=== PATIENT | female | born 1960 | race Hispanic/Latino ===

== ENCOUNTER 2017-03-25 21:48 | Emergency (ER) | payer BC, MEDICARE ==
[~2017-03-25 21:48] MED LIST: AEC81 PO; AMOX-429 PO; BIMA12.5OS OU; BRIM15OS OU; COSO10OS OU; DOCU50CA13 PO; EZET10TA26 PO; FAMO-136 PO; FERR325T22 PO; FOLI1TAB82 PO; INSU100I3 SQ; INSU100V12 SQ; ONDA4TAB9 PO; ROSU40TA28 PO; TORS100T16 PO
[2017-03-25] MEDS ORDERED: MORPHINE SULFATE 4 MG/1ML SYG ONE (23:54)
[2017-03-25] MEDS ORDERED: ONDANSETRON HCL 4 MG/2 ML VIAL ONE (23:54)
[2017-03-26] MEDS ORDERED: MORPHINE SULFATE 4 MG/1ML SYG ONE (02:46)
== END 2017-03-26 04:16 | disposition home or self-care (01) ==
LOC: EDH 21:48
DX: S82.852A Displaced trimalleolar fracture of left lower leg, initial encounter for closed fracture (principal); S82.252A Displaced comminuted fracture of shaft of left tibia, initial encounter for closed fracture; S82.452A Displaced comminuted fracture of shaft of left fibula, initial encounter for closed fracture; E11.9 Type 2 diabetes mellitus without complications; E78.5 Hyperlipidemia, unspecified; I10 Essential (primary) hypertension; I25.810 Atherosclerosis of coronary artery bypass graft(s) without angina pectoris; Z95.1 Presence of aortocoronary bypass graft; Z90.710 Acquired absence of both cervix and uterus; X58.XXXA Exposure to other specified factors, initial encounter; Y93.89 Activity, other specified; Y92.89 Other specified places as the place of occurrence of the external cause; Y99.8 Other external cause status
CPT/HCPCS: 27818; 73600; 73610; 96374; 96375; 96376; 99284; J2270 ×2; J2405

== ENCOUNTER 2018-03-12 10:43 | Inpatient (IN) | payer BC, MEDICARE ==
[~2018-03-12] VITALS: Ht 160 cm; Wt 70.8 kg
[~2018-03-12 10:43] MED LIST changes: +ROSU40TA20 PO; -ROSU40TA28 PO
[2018-03-12 12:08] LABS: EOSINOPHILS % (AUTO) 0.9 % (0.0-8.0); HEMATOCRIT 29.5 % (36-48); LYMPHOCYTES % (AUTO) 14.5 % (21.0-51.0); MEAN CORPUSCULAR HEMOGLOBIN 26.4 pg (27.0-33.0); MEAN CORPUSCULAR HGB CONC 32.3 g/dL (32.0-36.0); MEAN CORPUSCULAR VOLUME 81.9 fL (79-99); MONOCYTES % (AUTO) 4.3 % (3.0-13.0); NEUTROPHILS % (AUTO) 79.3 % (40.0-77.0); PLATELET COUNT (AUTO) 351 K/uL (130-400); RED CELL DISTRIBUTION WIDTH 18.3 % (11.0-15.5); WHITE BLOOD COUNT (AUTO) 7.9 K/uL (4.8-10.8)
[2018-03-12 12:28] LABS: ALBUMIN 2.2 g/dL (3.5-5.0); BILIRUBIN,TOTAL 0.2 mg/dL (0.2-1.0); TOTAL PROTEIN, SERUM 6.6 g/dL (6.0-8.3)
[2018-03-12 12:29] LABS: POTASSIUM 2.8 mmol/L (3.5-5.1)
[2018-03-12] MEDS ORDERED: LEVOFLOXACIN 500 MG/D5W 100 ML 100 ML ONE (12:59)
[2018-03-12] MEDS ORDERED: POTASSIUM CHLORIDE 10% ELIXIR 20 MEQ/15 ML UDCUP ONE ×2 (13:09→18:49)
[2018-03-12 13:13] LABS: APPEARANCE,URINE Clear (CLEAR); BILIRUBIN,URINE Negative (NEGATIVE); COLOR,URINE Yellow (YELLOW); GLUCOSE, URINE (UA) 500 mg/dL (NEGATIVE); KETONES,URINE 15 mg/dL (NEGATIVE); LEUKOCYTE ESTERASE ,URINE Negative (NEGATIVE); NITRATE,URINE Negative (NEGATIVE); OCCULT BLOOD,URINE Small (NEGATIVE); PH,URINE 5.5 (5.0-8.0); PROTEIN,URINE >=1000 (NEGATIVE); UROBILINOGEN,URINE 0.2 mg/dL (0.2-1.0)
[2018-03-12 13:24] LABS: BACTERIA,URINE Rare /HPF (None Seen); RBC,URINE 0-1 /HPF (0-1); SQUAMOUS EPITHELIAL CELL,UR Rare /HPF (0-2)
[2018-03-12] MEDS ORDERED: AZITHROMYCIN 500MG+NS 250ML 250 ML IV ONE (14:59)
[2018-03-12] MEDS ORDERED: LIDOCAINE HCL-MPF 1% 2ML VIAL IV PRN (15:30)
[2018-03-12] MEDS ORDERED: GLUCAGON 1MG KIT 1 MG ML IM PRN (15:30)
[2018-03-12] MEDS ORDERED: ONDANSETRON HCL 4 MG/2 ML VIAL IVP PRN (15:30)
[2018-03-12] MEDS ORDERED: POTASSIUM CHLORIDE 10% ELIXIR 20 MEQ/15 ML UDCUP PO PRN (15:30)
[2018-03-12] MEDS ORDERED: POTASSIUM CHLORIDE 10MEQ/100ML 100 ML IV PRN (15:30)
[2018-03-12] MEDS ORDERED: ACETAMINOPHEN 325 MG TAB PO PRN (15:30)
[2018-03-12] MEDS: FUROSEMIDE 10 MG/ML 10ML VIAL IVP SCH (16:00)
[2018-03-12] MEDS: CEFTRIAXONE SODIUM 1 GM IVP SCH (17:00)
[2018-03-12] MEDS ORDERED: FUROSEMIDE 10 MG/ML 4ML VIAL ONE (18:49)
[2018-03-12] MEDS ORDERED: CEFTRIAXONE SODIUM 1 GM ONE (18:50)
[2018-03-12 20:45] LABS: CREATINE KINASE, TOTAL 191 U/L (21-232); MYOGLOBIN 386 ng/mL (10-92); TROPONIN I < 0.04 ng/mL (0.00-0.06)
[2018-03-12] MEDS: SODIUM BICARBONATE 650 MG TAB PO SCH (21:00)
[2018-03-12] MEDS: INSULIN R PO SS1 SQ SCH ×2 (21:00→22:14)
[2018-03-12 21:16] VITALS: BP 96/58
[2018-03-12] MEDS ORDERED: PANT40TA25 PO (23:05)
[2018-03-12] MEDS ORDERED: ACET500C44 PO (23:05)
[2018-03-12] MEDS ORDERED: OSEL30CA2 PO (23:05)
[2018-03-12] MEDS ORDERED: AMLO10TA7 PO (23:05)
[2018-03-12] MEDS ORDERED: METO-409 PO (23:05)
[2018-03-12] MEDS ORDERED: TYL3 PO (23:05)
[2018-03-12 23:41] VITALS: BP 148/72
[2018-03-13 04:24] LABS: HEMATOCRIT 27.2 % (36-48); MEAN CORPUSCULAR HEMOGLOBIN 26.4 pg (27.0-33.0); MEAN CORPUSCULAR HGB CONC 32.3 g/dL (32.0-36.0); MEAN CORPUSCULAR VOLUME 81.8 fL (79-99); NUCLEATED RED BLOOD CELLS 0.1 % (0.0-0.19); PLATELET COUNT (AUTO) 352 K/uL (130-400); RED BLOOD CELL COUNT(AUTO) 3.32 MIL/uL (4.00-5.50); WHITE BLOOD COUNT (AUTO) 7.2 K/uL (4.8-10.8)
[2018-03-13 04:29] VITALS: BP 171/74
[2018-03-13 04:29] LABS: HEMOGLOBIN A1C 12.6 % (4.0-6.0)
[2018-03-13 04:47] LABS: CARBON DIOXIDE 15 mmol/L (21-32); CHLORIDE 104 mmol/L (101-111); CHOLESTEROL 135 mg/dL (<200); CREATINE KINASE, TOTAL 157 U/L (21-232); CREATININE 3.8 mg/dL (0.5-1.5); GLOMERULAR FILTR. RATE CALC 13 mL/min (>60); GLUCOSE,RANDOM 142 mg/dL (70-105); HDL CHOLESTEROL 39 mg/dL (35-85); LDL DIRECT 50 mg/dL (0-99); MYOGLOBIN 371 ng/mL (10-92); PHOSPHORUS 4.2 mg/dL (2.5-4.9); SODIUM SERUM 135 mmol/L (136-145); THYROID STIMULATING HORMONE 2.33 uIU/mL (0.36-3.74); TRIGLYCERIDES 292 mg/dL (30-200); TROPONIN I < 0.04 ng/mL (0.00-0.06); UREA NITROGEN, BLOOD 60 mg/dL (7-18)
[2018-03-13 04:49] LABS: FERRITIN 204 ng/mL (15-150); IRON, SERUM 14 mcg/dL (50-170)
[2018-03-13 04:52] LABS: POTASSIUM 2.7 mmol/L (3.5-5.1)
[2018-03-13] MEDS: FUROSEMIDE 10 MG/ML 10ML VIAL IVP SCH ×2 (05:47→17:12)
[2018-03-13] MEDS: INSULIN R PO SS1 SQ SCH ×4 (06:04→21:30)
[2018-03-13 08:10] VITALS: BP 178/76
[2018-03-13] MEDS: SODIUM BICARBONATE 650 MG TAB PO SCH ×2 (08:30→21:26)
[2018-03-13] MEDS: FAMOTIDINE/PF 20 MG/2 ML VIAL IV SCH (08:31)
[2018-03-13] MEDS: AZITHROMYCIN 500MG+NS 250ML 250 ML IV SCH (11:49)
[2018-03-13 11:53] VITALS: BP 168/84
--- NOTE | 2018-03-13 11:55 | NUR ---
DR. DARDEN IN ROOM SPEAKING WITH PT. AND PT.'S FAMILY MEMBERS AT BEDSIDE INFORMING OF PLAN OF CARE. QUESTIONS ANSWERED BY DR. DARDEN. DR. DARDEN MADE AWARE OF CURRENT MEDICATION REGIMEN AND VS TREND WELL LAB RESULTS, VERBALIZED UNDERSTANDING AND ORDERS RECEIVED.
[2018-03-13] MEDS ORDERED: PHARMACY COMMUNICATION MISC SCH (12:15)
[2018-03-13] MEDS ORDERED: MAGNESIUM 2GM PREMIX 50ML 50 ML IV SCH (12:15)
--- NOTE | 2018-03-13 15:06 | NUR ---
DC PLAN VISITED WITH PATIENT. PATIENT LIVES WITH SPOUSE. INDEPENDENT ABLE TO PERFORM ADL'S. PATIENT HAS NO SERVICES. WALKER AND WHEEL CHAIR AVAILABLE. FEELS SAFE TO RETURN HOME. Addendum: 03/13/18 at 1507 by BIB GRIMES RN CM Amended: Links added.
[2018-03-13 16:25] VITALS: BP 111/61
[2018-03-13] MEDS: CEFTRIAXONE SODIUM 1 GM IVP SCH (17:11)
[2018-03-13] MEDS: POTASSIUM CHLORIDE 10% ELIXIR 20 MEQ/15 ML UDCUP PO PRN (18:14)
[2018-03-13 19:59] VITALS: BP 165/72
[2018-03-13] MEDS: METOPROLOL TARTRATE 50 MG TAB PO SCH (21:26)
[2018-03-13] MEDS: POTASSIUM CHLORIDE 10 MEQ/TAB.SR PO PRN (21:26)
[2018-03-13 23:49] VITALS: BP 187/78
[2018-03-14 03:56] LABS: HEMATOCRIT 25.7 % (36-48); MEAN CORPUSCULAR HEMOGLOBIN 27.3 pg (27.0-33.0); MEAN CORPUSCULAR HGB CONC 33.5 g/dL (32.0-36.0); MEAN CORPUSCULAR VOLUME 81.6 fL (79-99); NUCLEATED RED BLOOD CELLS 0.2 % (0.0-0.19); PLATELET COUNT (AUTO) 327 K/uL (130-400); RED BLOOD CELL COUNT(AUTO) 3.15 MIL/uL (4.00-5.50); WHITE BLOOD COUNT (AUTO) 7.2 K/uL (4.8-10.8)
[2018-03-14] MEDS: FUROSEMIDE 10 MG/ML 10ML VIAL IVP SCH ×2 (04:00→14:58)
[2018-03-14 04:04] VITALS: BP 178/73
[2018-03-14 04:06] LABS: CREATININE 3.8 mg/dL (0.5-1.5)
[2018-03-14 04:07] LABS: POTASSIUM 2.9 mmol/L (3.5-5.1)
[2018-03-14] MEDS: POTASSIUM CHLORIDE 10 MEQ/TAB.SR PO PRN ×3 (04:37→14:58)
[2018-03-14] MEDS: INSULIN R PO SS1 SQ SCH ×3 (06:25→16:19)
[2018-03-14 07:00] VITALS: BP 148/72
[2018-03-14] MEDS: SODIUM BICARBONATE 650 MG TAB PO SCH ×2 (07:33→20:49)
[2018-03-14] MEDS: AMLODIPINE BESYLATE 5 MG TAB PO SCH (07:33)
[2018-03-14] MEDS: METOPROLOL TARTRATE 50 MG TAB PO SCH ×2 (07:33→20:49)
[2018-03-14] MEDS: FAMOTIDINE/PF 20 MG/2 ML VIAL IV SCH (07:34)
--- NOTE | 2018-03-14 08:00 | NUR ---
ASSESSMENT PT IS AAOX4 DENIES CP DENIES SOB DENIES NV RESTING IN BED. NO COMPLAINTS. CALL LIGHT WITHIN REACH.
[2018-03-14 11:00] VITALS: BP 155/71
[2018-03-14] MEDS: AZITHROMYCIN 500MG+NS 250ML 250 ML IV SCH (11:11)
[2018-03-14] MEDS ORDERED: COMPOUND IV MISC 1 EACH IVSOLN MISC PRN (12:00)
--- NOTE | 2018-03-14 12:00 | NUR ---
DR DARDEN ROUNDED ORDERS RECEIVED
[2018-03-14] MEDS: EPOETIN ALFA 10,000 UNIT/ML VIAL SQ SCH (13:40)
[2018-03-14] MEDS: CEFTRIAXONE SODIUM 1 GM IVP SCH (14:58)
[2018-03-14 16:00] VITALS: BP 167/76
--- NOTE | 2018-03-14 18:30 | NUR ---
SHIFT NOTE NO COMPLAINTS THROUGHOUT THE DAY. DENIES PAIN DENIES NV DENIES SOB. SITTING UPRIGHT IN BED WATCHING TV WITH FAMILY AT BEDSIDE. CALL LIGHT WITHIN REACH.
[2018-03-14 19:39] VITALS: BP 152/75
[2018-03-14] MEDS: IRON SUCROSE COMPLEX 100 MG in SODIUM CHLORIDE 0.9% 50 ML IV SCH (20:49)
[2018-03-15] VITALS (7 sets, daily range): BP systolic 143–175; BP diastolic 67–83
[2018-03-15 03:36] LABS: HEMATOCRIT 25.9 % (36-48); MEAN CORPUSCULAR HEMOGLOBIN 26.4 pg (27.0-33.0); MEAN CORPUSCULAR HGB CONC 32.6 g/dL (32.0-36.0); NUCLEATED RED BLOOD CELLS 0.2 % (0.0-0.19); PLATELET COUNT (AUTO) 343 K/uL (130-400); RED CELL DISTRIBUTION WIDTH 17.9 % (11.0-15.5); WHITE BLOOD COUNT (AUTO) 6.7 K/uL (4.8-10.8)
[2018-03-15 03:55] LABS: CREATININE 3.8 mg/dL (0.5-1.5); PHOSPHORUS 4.2 mg/dL (2.5-4.9)
[2018-03-15 03:56] LABS: POTASSIUM 2.8 mmol/L (3.5-5.1)
[2018-03-15] MEDS: POTASSIUM CHLORIDE 10 MEQ/TAB.SR PO PRN ×3 (04:41→09:15)
[2018-03-15] MEDS: FUROSEMIDE 10 MG/ML 10ML VIAL IVP SCH (04:41)
[2018-03-15] MEDS: INSULIN R PO SS1 SQ SCH ×5 (04:44→21:03)
[2018-03-15] MEDS: EPOETIN ALFA 10,000 UNIT/ML VIAL SQ SCH (07:06)
[2018-03-15] MEDS: SODIUM BICARBONATE 650 MG TAB PO SCH ×2 (07:07→20:07)
[2018-03-15] MEDS: AMLODIPINE BESYLATE 5 MG TAB PO SCH (07:07)
[2018-03-15] MEDS: FAMOTIDINE/PF 20 MG/2 ML VIAL IV SCH (07:07)
[2018-03-15] MEDS: METOPROLOL TARTRATE 50 MG TAB PO SCH ×2 (07:07→20:06)
--- NOTE | 2018-03-15 08:00 | NUR ---
ASSESSMENT PT IS AAOX4 DENIES CP DENIES SOB DENIES NV SITTING UPRIGHT AT BEDSIDE, EATING BREAKFAST. AM MEDS GIVEN. NO COMPLAINTS. CALL LIGHT WITHIN REACH.
[2018-03-15] MEDS: AZITHROMYCIN 500MG+NS 250ML 250 ML IV SCH (10:50)
[2018-03-15] MEDS: CEFTRIAXONE SODIUM 1 GM IVP SCH (16:20)
[2018-03-15] MEDS: FUROSEMIDE 80 MG TABLET PO SCH (16:20)
[2018-03-15] MEDS: IRON SUCROSE COMPLEX 100 MG in SODIUM CHLORIDE 0.9% 50 ML IV SCH (20:07)
[2018-03-15] MEDS: POTASSIUM CHLORIDE 20 MEQ ERTAB PO SCH (20:07)
[2018-03-16 03:32] VITALS: BP 157/69
[2018-03-16 04:04] LABS: HEMATOCRIT 27.6 % (36-48); MEAN CORPUSCULAR HEMOGLOBIN 26.2 pg (27.0-33.0); MEAN CORPUSCULAR VOLUME 81.9 fL (79-99); NUCLEATED RED BLOOD CELLS 0.2 % (0.0-0.19); PLATELET COUNT (AUTO) 336 K/uL (130-400); RED BLOOD CELL COUNT(AUTO) 3.37 MIL/uL (4.00-5.50); RED CELL DISTRIBUTION WIDTH 17.9 % (11.0-15.5); WHITE BLOOD COUNT (AUTO) 6.4 K/uL (4.8-10.8)
[2018-03-16 04:23] LABS: CREATININE 3.6 mg/dL (0.5-1.5); POTASSIUM 3.4 mmol/L (3.5-5.1)
[2018-03-16] MEDS: INSULIN R PO SS1 SQ SCH ×4 (05:40→21:58)
[2018-03-16 07:43] VITALS: BP 156/76
--- NOTE | 2018-03-16 08:00 | NUR ---
AM ASSESSMENT PT LAYING IN BED, WATCHING TV. A/O X 3. SOB ON EXERTION. NO DISTRESS NOTED. O2 NC @ 2L. DENIES CHEST PAIN OR DISCOMFORT. DENIES PALPITATIONS. TELE: SR 70s. DENIES N/V AND/OR DIARRHEA. UP AD THIERNO. INSTRUCTED TO CALL FOR ASSISTANCE. CALL DILLON W/AUBREY LUA.
[2018-03-16] MEDS: FUROSEMIDE 80 MG TABLET PO SCH ×2 (09:37→16:54)
[2018-03-16] MEDS: METOPROLOL TARTRATE 50 MG TAB PO SCH ×2 (09:37→22:09)
[2018-03-16] MEDS: FAMOTIDINE 20MG TAB 20 MG TAB PO SCH (09:37)
[2018-03-16] MEDS: POTASSIUM CHLORIDE 20 MEQ ERTAB PO SCH ×2 (09:38→22:08)
[2018-03-16] MEDS: AZITHROMYCIN 500MG+NS 250ML 250 ML IV SCH (09:39)
[2018-03-16] MEDS: CEFTRIAXONE SODIUM 1 GM IVP SCH (09:39)
[2018-03-16] MEDS: AMLODIPINE BESYLATE 5 MG TAB PO SCH (09:40)
[2018-03-16] MEDS: SODIUM BICARBONATE 650 MG TAB PO SCH ×2 (09:40→22:08)
[2018-03-16 11:45] VITALS: BP 140/67
[2018-03-16 16:29] VITALS: BP 149/74
[2018-03-16 19:57] VITALS: BP 157/72
[2018-03-16] MEDS: INSULIN GLARGINE 100 UNITS/ML 10 ML VIAL SQ SCH (21:55)
[2018-03-16] MEDS: IRON SUCROSE COMPLEX 100 MG in SODIUM CHLORIDE 0.9% 50 ML IV SCH (22:08)
[2018-03-17] VITALS (7 sets, daily range): BP systolic 111–178; BP diastolic 63–78
[2018-03-17 03:53] LABS: HEMATOCRIT 27.1 % (36-48); MEAN CORPUSCULAR HEMOGLOBIN 26.3 pg (27.0-33.0); MEAN CORPUSCULAR HGB CONC 32.4 g/dL (32.0-36.0); NUCLEATED RED BLOOD CELLS 0.2 % (0.0-0.19); PLATELET COUNT (AUTO) 343 K/uL (130-400); RED BLOOD CELL COUNT(AUTO) 3.34 MIL/uL (4.00-5.50); RED CELL DISTRIBUTION WIDTH 17.6 % (11.0-15.5); WHITE BLOOD COUNT (AUTO) 6.8 K/uL (4.8-10.8)
[2018-03-17 04:11] LABS: CREATININE 3.7 mg/dL (0.5-1.5); POTASSIUM 3.4 mmol/L (3.5-5.1)
[2018-03-17] MEDS: INSULIN R PO SS1 SQ SCH ×4 (06:46→21:00)
[2018-03-17] MEDS: AMLODIPINE BESYLATE 5 MG TAB PO SCH (08:48)
[2018-03-17] MEDS: METOPROLOL TARTRATE 50 MG TAB PO SCH ×2 (08:48→22:07)
[2018-03-17] MEDS: POTASSIUM CHLORIDE 20 MEQ ERTAB PO SCH ×2 (08:48→22:07)
[2018-03-17] MEDS: FAMOTIDINE 20MG TAB 20 MG TAB PO SCH (08:48)
[2018-03-17] MEDS: SODIUM BICARBONATE 650 MG TAB PO SCH ×2 (08:49→22:07)
[2018-03-17] MEDS: AZITHROMYCIN 500MG+NS 250ML 250 ML IV SCH (08:49)
[2018-03-17] MEDS: CEFTRIAXONE SODIUM 1 GM IVP SCH (08:49)
[2018-03-17] MEDS: FUROSEMIDE 80 MG TABLET PO SCH ×2 (08:49→16:33)
[2018-03-17] MEDS ORDERED: INSULIN GLARGINE 100 UNITS/ML 10 ML VIAL SQ SCH (09:00)
[2018-03-17] MEDS: INSULIN GLARGINE 100 UNITS/ML 10 ML VIAL SQ SCH (22:02)
[2018-03-17] MEDS: IRON SUCROSE COMPLEX 100 MG in SODIUM CHLORIDE 0.9% 50 ML IV SCH (22:07)
[2018-03-18 01:00] VITALS: BP 154/76
--- NOTE | 2018-03-18 02:10 | NUR ---
PATIENT STATES FEELS WEAK/DIAPHORETIC. GLUCOSE CHECKED 50. 1 AMP D50 GIVEN. SNACK PROVIDED. PATIENT STATES FEELS BETTER. WILL CONTINUE TO MONITOR.
[2018-03-18] MEDS: DEXTROSE 50%-WATER 50 ML DISP.SYRIN IV PRN (02:15)
--- NOTE | 2018-03-18 03:00 | NUR ---
GLUCOSE 126.
[2018-03-18 03:58] LABS: HEMATOCRIT 26.9 % (36-48); MEAN CORPUSCULAR HEMOGLOBIN 26.2 pg (27.0-33.0); MEAN CORPUSCULAR HGB CONC 32.2 g/dL (32.0-36.0); MEAN CORPUSCULAR VOLUME 81.3 fL (79-99); NUCLEATED RED BLOOD CELLS 0.2 % (0.0-0.19); PLATELET COUNT (AUTO) 385 K/uL (130-400); RED BLOOD CELL COUNT(AUTO) 3.31 MIL/uL (4.00-5.50); RED CELL DISTRIBUTION WIDTH 17.9 % (11.0-15.5); WHITE BLOOD COUNT (AUTO) 8.3 K/uL (4.8-10.8)
[2018-03-18 04:00] VITALS: BP 149/76
[2018-03-18 04:12] LABS: CREATININE 3.2 mg/dL (0.5-1.5); PHOSPHORUS 3.8 mg/dL (2.5-4.9)
[2018-03-18 04:13] LABS: POTASSIUM 2.8 mmol/L (3.5-5.1)
[2018-03-18 04:29] LABS: BAND NEUTROPHILS % (MANUAL) 1 % (0-2); EOSINOPHILS % (MANUAL) 2 % (1-6); LYMPHOCYTES % (MANUAL) 26 % (22-44); MAN.DIFF COMMENT-IMPRESSION MANUAL DIFFERENTIAL; MONOCYTES % (MANUAL) 6 % (2-9); SEGMENTED NEUTROPHILS % 65 % (40-70)
[2018-03-18 04:30] LABS: PLATELET MORPHOLOGY COMMENT ADEQUATE
[2018-03-18] MEDS: POTASSIUM CHLORIDE 10% ELIXIR 20 MEQ/15 ML UDCUP PO PRN ×2 (04:31→16:13)
[2018-03-18] MEDS: INSULIN R PO SS1 SQ SCH ×4 (06:47→22:35)
[2018-03-18] MEDS: POTASSIUM CHLORIDE 10 MEQ/TAB.SR PO PRN (06:51)
[2018-03-18 07:43] VITALS: BP 157/83
[2018-03-18] MEDS: FAMOTIDINE 20MG TAB 20 MG TAB PO SCH (09:28)
[2018-03-18] MEDS: METOPROLOL TARTRATE 50 MG TAB PO SCH ×2 (09:29→22:42)
[2018-03-18] MEDS: POTASSIUM CHLORIDE 20 MEQ ERTAB PO SCH ×2 (09:29→22:42)
[2018-03-18] MEDS: AZITHROMYCIN 500MG+NS 250ML 250 ML IV SCH (09:29)
[2018-03-18] MEDS: AMLODIPINE BESYLATE 5 MG TAB PO SCH (09:29)
[2018-03-18] MEDS: FUROSEMIDE 80 MG TABLET PO SCH ×2 (09:29→16:41)
[2018-03-18] MEDS: CEFTRIAXONE SODIUM 1 GM IVP SCH (09:30)
[2018-03-18] MEDS: SODIUM BICARBONATE 650 MG TAB PO SCH ×2 (09:30→22:41)
[2018-03-18 11:33] VITALS: BP 142/75
[2018-03-18 16:40] VITALS: BP 159/81
[2018-03-18 20:09] VITALS: BP 141/73
[2018-03-18] MEDS: INSULIN GLARGINE 100 UNITS/ML 10 ML VIAL SQ SCH (22:36)
[2018-03-18] MEDS: IRON SUCROSE COMPLEX 100 MG in SODIUM CHLORIDE 0.9% 50 ML IV SCH (22:42)
[2018-03-19] VITALS (7 sets, daily range): BP systolic 144–183; BP diastolic 76–88
--- NOTE | 2018-03-19 03:05 | NUR ---
PATIENT DIAPHORETIC/WEAK. GLUCOSE 39. 1 AMP D50 GIVEN. SNACK PROVIDED. Addendum: 03/19/18 at 0321 by JASPER SANYD RN RN PATIENT FEELS BETTER. WILL CONTINUE TO MONITOR.
[2018-03-19] MEDS: DEXTROSE 50%-WATER 50 ML DISP.SYRIN IV PRN (03:17)
--- NOTE | 2018-03-19 04:15 | NUR ---
GLUCOSE 111.
[2018-03-19 04:49] LABS: MEAN CORPUSCULAR HEMOGLOBIN 26.4 pg (27.0-33.0); MEAN CORPUSCULAR HGB CONC 31.9 g/dL (32.0-36.0); MEAN CORPUSCULAR VOLUME 82.8 fL (79-99); PLATELET COUNT (AUTO) 433 K/uL (130-400); RED CELL DISTRIBUTION WIDTH 18.4 % (11.0-15.5); WHITE BLOOD COUNT (AUTO) 8.1 K/uL (4.8-10.8)
[2018-03-19 04:55] LABS: CREATININE 3.1 mg/dL (0.5-1.5); PHOSPHORUS 4.2 mg/dL (2.5-4.9); POTASSIUM 3.7 mmol/L (3.5-5.1)
[2018-03-19] MEDS: INSULIN R PO SS1 SQ SCH ×2 (05:36→11:26)
[2018-03-19 05:42] LABS: EOSINOPHILS % (MANUAL) 7 % (1-6); LYMPHOCYTES % (MANUAL) 28 % (22-44); MONOCYTES % (MANUAL) 8 % (2-9); SEGMENTED NEUTROPHILS % 57 % (40-70)
[2018-03-19 05:45] LABS: MAN.DIFF COMMENT-IMPRESSION MANUAL DIFFERENTIAL; PLATELET MORPHOLOGY COMMENT ADEQUATE
[2018-03-19] MEDS: AZITHROMYCIN 500MG+NS 250ML 250 ML IV SCH (07:31)
[2018-03-19] MEDS: POTASSIUM CHLORIDE 20 MEQ ERTAB PO SCH ×2 (07:31→19:59)
[2018-03-19] MEDS: CEFTRIAXONE SODIUM 1 GM IVP SCH (07:31)
[2018-03-19] MEDS: FAMOTIDINE 20MG TAB 20 MG TAB PO SCH (07:31)
[2018-03-19] MEDS: METOPROLOL TARTRATE 50 MG TAB PO SCH ×2 (07:31→19:59)
[2018-03-19] MEDS: FUROSEMIDE 80 MG TABLET PO SCH ×2 (07:31→16:06)
[2018-03-19] MEDS: AMLODIPINE BESYLATE 5 MG TAB PO SCH (07:31)
[2018-03-19] MEDS: SODIUM BICARBONATE 650 MG TAB PO SCH ×2 (07:32→19:59)
--- NOTE | 2018-03-19 08:00 | NUR ---
ASSESSMENT PT IS AAOX4 DENIES CP DENIES SOB DENIES NV RESTING IN BED NO COMPLAINTS. AM MEDS TAKEN, NO CHOKING NO GAGGING NOTED. SITTING UPRIGHT WATCHING TV. CALL LIGHT WITHIN REACH.
--- NOTE | 2018-03-19 12:50 | NUR ---
STATUS NO COMPLAINTS, SITTING UPRIGHT IN BED TOLERATED LUNCH.
--- NOTE | 2018-03-19 13:00 | NUR ---
DR DARDEN ROUNDED SAW PATIENT ORDERS RECEIVED
[2018-03-19] MEDS: INSULIN HUMULIN R 100 UNIT/ML 3ML SQ SCH (16:20)
[2018-03-19] MEDS: IRON SUCROSE COMPLEX 100 MG in SODIUM CHLORIDE 0.9% 50 ML IV SCH (19:58)
--- NOTE | 2018-03-19 21:00 | NUR ---
PT IN BED, FAMILY AT BEDSIDE. NO DISTRESS NOTED. VENOFER GIVEN IV AND PT STATED BURNING SENSATION. VERIFIED PATENCY AND FOR S.S OF INFILTRATION. PT STATED NO PAIN. NO LUMPS. OR REDNESS NOTED. BRUISING AROUND SITE DUE TO IV INSERTION ATTEMPTS DURING THE DAY. WILL FOLLOW CONTINUE TO MONITOR SITE. AAOX3. PERRLA. WEARING GLASSES. ABLE TO AMBULATE WITH MINIMAL ASSIST. NO PAIN. NO CONSTIPATION. EDEMA TO LOWER EXTREMITIES. NO PITTING +1.
[2018-03-19] MEDS: INSULIN GLARGINE 100 UNITS/ML 10 ML VIAL SQ SCH (22:09)
[2018-03-20 04:01] LABS: HEMATOCRIT 28.8 % (36-48); MEAN CORPUSCULAR HEMOGLOBIN 26.4 pg (27.0-33.0); MEAN CORPUSCULAR HGB CONC 31.9 g/dL (32.0-36.0); MEAN CORPUSCULAR VOLUME 82.9 fL (79-99); NUCLEATED RED BLOOD CELLS 0.2 % (0.0-0.19); PLATELET COUNT (AUTO) 368 K/uL (130-400); RED BLOOD CELL COUNT(AUTO) 3.48 MIL/uL (4.00-5.50); RED CELL DISTRIBUTION WIDTH 18.2 % (11.0-15.5); WHITE BLOOD COUNT (AUTO) 8.2 K/uL (4.8-10.8)
[2018-03-20 04:08] LABS: CREATININE 3.3 mg/dL (0.5-1.5)
[2018-03-20 04:23] VITALS: BP 151/79
[2018-03-20] MEDS: INSULIN HUMULIN R 100 UNIT/ML 3ML SQ SCH ×2 (06:31→11:30)
[2018-03-20] MEDS: AMLODIPINE BESYLATE 5 MG TAB PO SCH (07:07)
[2018-03-20] MEDS: SODIUM BICARBONATE 650 MG TAB PO SCH (07:07)
[2018-03-20] MEDS: METOPROLOL TARTRATE 50 MG TAB PO SCH (07:07)
[2018-03-20] MEDS: AZITHROMYCIN 500MG+NS 250ML 250 ML IV SCH (07:08)
[2018-03-20] MEDS: FUROSEMIDE 80 MG TABLET PO SCH (07:08)
[2018-03-20] MEDS: CEFTRIAXONE SODIUM 1 GM IVP SCH (07:08)
[2018-03-20] MEDS: POTASSIUM CHLORIDE 20 MEQ ERTAB PO SCH (07:08)
[2018-03-20] MEDS: FAMOTIDINE 20MG TAB 20 MG TAB PO SCH (07:08)
[2018-03-20 07:35] VITALS: BP 157/85
[2018-03-20 11:07] VITALS: BP 160/79
[2018-03-20] MEDS ORDERED: FOLI1CAP2 PO (12:04)
[2018-03-20] MEDS ORDERED: FERS325 PO (12:04)
--- NOTE | 2018-03-20 12:30 | NUR ---
DR DARDEN ROUNDED ORDERS RECEIVED
--- NOTE | 2018-03-20 13:44 | NUR ---
DISCHARGE PATIENT AND FAMILY VERBALIZE DC INSTRUCTIONS UNDERSTANDING, AGREE TO TAKE MEDICATIONS ORDERED, AGREE TO FOLLOW UP WITH DR DARDEN ORDERED. PIV REMOVED, CATH TIP INTACT, TELE PACK REMOVED. ALL BELONGINGS TAKEN WITH PATIENT. DOWN VIA WC.
--- NOTE | 2018-03-20 14:59 | NUR ---
RD Notification Patient tolerating Renal Non-dialysis, 75gm CCD diet with no report of GI distress and PO intake at 100% as per patient. Patient LBM 03/19/18. RD provided diet education for patient. Patient accepted diet education and reference materials. Patient monitored labs: BUN 43, Cr 3.3, GFR 15, Ca 8.4, Alb 2.2. RD to continue to monitor. Please notify RD as nutrition concerns arise. Thank you. Addendum: 03/20/18 at [address] RD Amended: Links added.
--- NOTE | 2018-03-20 15:04 | NUR ---
Diet Education RD provided Renal and Diabetes diet education with reference materials and handouts. Patient was receptive and attentive during education. Patient with no questions at time of education. RD to follow-up. Please notify RD as nutritional concerns arise. Thank you. Addendum: 03/20/18 at [address] RD Amended: Links added.
== END 2018-03-20 13:47 | disposition home or self-care (01) | DRG 682 ==
LOC: EDH 10:43 → EDHIP 14:20 → 2AH 20:47
PROVIDERS: ADMIT Internal Medicine Nephrology; ATTEND Internal Medicine Nephrology
DX: N17.9 Acute kidney failure, unspecified (principal); J18.9 Pneumonia, unspecified organism; I50.33 Acute on chronic diastolic (congestive) heart failure; I13.0 Hypertensive heart and chronic kidney disease with heart failure and stage 1 through stage 4 chronic kidney disease, or unspecified chronic kidney disease; I42.9 Cardiomyopathy, unspecified; E11.21 Type 2 diabetes mellitus with diabetic nephropathy; E11.51 Type 2 diabetes mellitus with diabetic peripheral angiopathy without gangrene; E87.6 Hypokalemia; D64.9 Anemia, unspecified; H40.9 Unspecified glaucoma; E78.5 Hyperlipidemia, unspecified; I25.10 Atherosclerotic heart disease of native coronary artery without angina pectoris; N18.9 Chronic kidney disease, unspecified; E11.22 Type 2 diabetes mellitus with diabetic chronic kidney disease; E11.40 Type 2 diabetes mellitus with diabetic neuropathy, unspecified; E11.649 Type 2 diabetes mellitus with hypoglycemia without coma; Z90.710 Acquired absence of both cervix and uterus; Z91.19 Patient's noncompliance with other medical treatment and regimen; Z95.1 Presence of aortocoronary bypass graft
CPT/HCPCS: 36415; 71045; 80048; 80053; 80061; 81001; 82550; 82728; 82948; 83036; 83540; 83550; 83605; 83735; 83874; 84100; 84443; 84484; 85025; 85027; 87040; 93005; 93306; 99291; A4218; G0378; J0456; J0696; J0885; J1756; J1815; J1940; J1956; J3475; J3490; J7070

== ENCOUNTER 2018-08-28 09:34 | Inpatient (IN) | payer BC, MEDICARE ==
[~2018-08-28] VITALS: Ht 160 cm; Wt 73.8 kg
[~2018-08-28 09:34] MED LIST changes: +ACET500C44 PO; +AMLO10TA7 PO; -AMOX-429 PO; -EZET10TA26 PO; +EZET10TA48 PO; -FERR325T22 PO; +FERS325 PO; +FOLI1CAP2 PO; -FOLI1TAB82 PO; +METO-409 PO; -ONDA4TAB9 PO; -ROSU40TA20 PO; +ROSU40TA21 PO; +TYL3 PO
[2018-08-28] MEDS ORDERED: ONDANSETRON HCL 4 MG/2 ML VIAL ONE (10:13)
[2018-08-28 10:28] LABS: BASOPHILS % (AUTO) 1.8 % (0.0-5.0); EOSINOPHILS % (AUTO) 7.9 % (0.0-8.0); HEMATOCRIT 27.9 % (36-48); MEAN CORPUSCULAR HEMOGLOBIN 26.9 pg (27.0-33.0); MEAN CORPUSCULAR HGB CONC 32.4 g/dL (32.0-36.0); MONOCYTES % (AUTO) 7.5 % (3.0-13.0); NEUTROPHILS % (AUTO) 60.8 % (40.0-77.0); PLATELET COUNT (AUTO) 284 K/uL (130-400); RED BLOOD CELL COUNT(AUTO) 3.37 MIL/uL (4.00-5.50); RED CELL DISTRIBUTION WIDTH 17.5 % (11.0-15.5); WHITE BLOOD COUNT (AUTO) 6.8 K/uL (4.8-10.8)
[2018-08-28 10:43] LABS: ALBUMIN 2.7 g/dL (3.5-5.0); BILIRUBIN,TOTAL 0.2 mg/dL (0.2-1.0); CREATININE 5.8 mg/dL (0.5-1.5); TOTAL PROTEIN, SERUM 6.4 g/dL (6.0-8.3)
[2018-08-28 10:58] LABS: APPEARANCE,URINE Clear (CLEAR); BILIRUBIN,URINE Negative (NEGATIVE); COLOR,URINE Yellow (YELLOW); GLUCOSE, URINE (UA) TRACE mg/dL (NEGATIVE); KETONES,URINE Negative (NEGATIVE); LEUKOCYTE ESTERASE ,URINE Negative (NEGATIVE); NITRATE,URINE Negative (NEGATIVE); OCCULT BLOOD,URINE Trace (NEGATIVE); PH,URINE 5.5 (5.0-8.0); PROTEIN,URINE 300 mg/dL (NEGATIVE); UROBILINOGEN,URINE 0.2 mg/dL (0.2-1.0)
[2018-08-28 11:09] LABS: BACTERIA,URINE Rare /HPF (None Seen); SQUAMOUS EPITHELIAL CELL,UR 0-2 /HPF (0-2); WBC,URINE 0-1 /HPF (0-1)
[2018-08-28 11:42] LABS: INR 0.91 (0.85-1.15); PARTIAL THROMBOPLASTIN TIME 29.2 SEC (26.3-35.5); PROTHROMBIN TIME 9.6 SEC (9.6-11.6)
[2018-08-28] MEDS ORDERED: ONDANSETRON HCL 4 MG/2 ML VIAL IVP PRN (12:15)
[2018-08-28] MEDS ORDERED: GLUCAGON 1MG KIT 1 MG ML IM PRN (12:15)
[2018-08-28] MEDS ORDERED: ACETAMINOPHEN 325 MG TAB PO PRN ×2 (12:15→18:15)
[2018-08-28] MEDS ORDERED: LIDOCAINE HCL 1% MDV 50ML VIAL ONE (12:16)
[2018-08-28] MEDS: INSULIN R PO SS1 SQ SCH ×2 (16:30→20:49)
[2018-08-28] MEDS ORDERED: FOLI0.8T22 PO (18:05)
[2018-08-28] MEDS ORDERED: FERS325 PO (18:05)
[2018-08-28] MEDS ORDERED: METO5TAB7 PO (18:05)
[2018-08-28] MEDS ORDERED: PANT40TA25 PO (18:05)
[2018-08-28] MEDS ORDERED: DOCU100C33 PO (18:11)
[2018-08-28] MEDS ORDERED: 0.9% SODIUM CHLORIDE 1000 ML IV BAG IV PRN (18:15)
[2018-08-28] MEDS ORDERED: NITROGLYCERIN 0.4 MG SL TAB SL PRN (18:15)
[2018-08-28] MEDS ORDERED: HEPARIN SODIUM 5000UNIT/ML 1ML VIAL IJ PRN (18:15)
[2018-08-28] MEDS ORDERED: SODIUM CHLORIDE 0.9% 1000ML 1,000 ML IV PRN (18:15)
[2018-08-28] MEDS ORDERED: LIDOCAINE HCL-MPF 1% 2ML VIAL IJ PRN (18:15)
[2018-08-28 18:22] LABS: HEMATOCRIT 25.6 % (36-48)
[2018-08-28 18:24] LABS: MAGNESIUM 3.7 mg/dL (1.80-2.40); PHOSPHORUS 8.5 mg/dL (2.5-4.9)
[2018-08-28 18:25] LABS: ALBUMIN 2.6 g/dL (3.5-5.0); CREATININE 5.8 mg/dL (0.5-1.5)
[2018-08-28 18:29] LABS: % IRON SATURATION 19.7 % (22-44)
[2018-08-28 18:58] VITALS: BP 173/73
[2018-08-28 19:15] VITALS: BP 172/75
--- NOTE | 2018-08-28 19:23 | NUR ---
NEW DIALYSIS Addendum: 08/28/18 at 1925 by GAB SCHWARTZ RN RN Amended: Links added.
--- NOTE | 2018-08-28 19:27 | NUR ---
DIALYSIS Addendum: 08/28/18 at 1933 by GAB SCHWARTZ RN RN Amended: Links added.
[2018-08-28 23:51] VITALS: BP 162/74
[2018-08-29 04:10] VITALS: BP 167/74
[2018-08-29 06:16] LABS: BASOPHILS % (AUTO) 1.6 % (0.0-5.0); EOSINOPHILS % (AUTO) 6.8 % (0.0-8.0); HEMATOCRIT 26.7 % (36-48); LYMPHOCYTES % (AUTO) 23.9 % (21.0-51.0); MEAN CORPUSCULAR HEMOGLOBIN 27.4 pg (27.0-33.0); MEAN CORPUSCULAR HGB CONC 32.7 g/dL (32.0-36.0); MEAN CORPUSCULAR VOLUME 83.8 fL (79-99); MONOCYTES % (AUTO) 9.2 % (3.0-13.0); NEUTROPHILS % (AUTO) 58.5 % (40.0-77.0); PLATELET COUNT (AUTO) 255 K/uL (130-400); RED BLOOD CELL COUNT(AUTO) 3.19 MIL/uL (4.00-5.50); RED CELL DISTRIBUTION WIDTH 17.7 % (11.0-15.5); WHITE BLOOD COUNT (AUTO) 6.8 K/uL (4.8-10.8)
[2018-08-29 06:26] LABS: POTASSIUM 3.8 mmol/L (3.5-5.1)
[2018-08-29] MEDS: INSULIN R PO SS1 SQ SCH ×4 (06:37→21:33)
[2018-08-29 08:00] VITALS: BP 160/76
[2018-08-29] MEDS: FAMOTIDINE/PF 20 MG/2 ML VIAL IV SCH (09:16)
[2018-08-29 12:00] VITALS: BP 163/74
--- NOTE | 2018-08-29 12:45 | NUR ---
DCP CM met with pt discussed dc plans. Pt is independent prior to admission, lives at home with spouse and 2 children. Has a walker, wheelchair, shower chair, cane. Denies any other equipments/services. Pt feels safe to go back home, still drives, spouse able to assist with transportation and needs. Pt will be a new dialysis start. Pending to set up outpatient dialysis center, pending MD order. DC plan to home once stable. CM to cont to follow up. Addendum: 08/29/18 at 1307 by YADIRA SPEARS LVN CM Amended: Links added.
--- NOTE | 2018-08-29 13:00 | NUR ---
CM Note: [facility] pending approval and chair time CM met with pt discussed MD chávez for outpatient dialysis, pt agreeable requested MWF after 1pm, informed pt unable to guarantee chair time but will make dialysis center aware of pt request, EDELMIRA signed for #1[facility] #2 [facility]. CM faxed order and clinicals, pending lab results at this time, will fax lab results once available, confirmation received. Pt pending approval, acceptance, and chair time. Primary nurse aware. CM to cont to follow up.
--- NOTE | 2018-08-29 13:08 | NUR ---
CM Note: [facility] pending approval and chair time Spoke to Monica ugalde/[facility], received order and clinicals, aware pending lab results and will send as soon as resulted. Pt pending approval and chair time at this time. Primary nurse aware. CM to cont to follow up.
[2018-08-29 16:00] VITALS: BP 173/81
--- NOTE | 2018-08-29 16:54 | NUR ---
dr burgos paged regarding home medications listed and pending to resume . pending call back
[2018-08-29 19:25] VITALS: BP 192/78
[2018-08-29] MEDS: ACETAMINOPHEN EXTRA STRENGTH 500 MG TABLET PO SCH (21:31)
[2018-08-29] MEDS: EZETIMIBE 10 MG TAB PO SCH (21:31)
[2018-08-29] MEDS: ATORVASTATIN CALCIUM 40 MG TABLET PO SCH (21:31)
[2018-08-29] MEDS: METOPROLOL TARTRATE 50 MG TAB PO SCH (21:31)
[2018-08-29] MEDS: BRIMONIDINE TARTRATE 0.2% 5 ML BOTTLE OU SCH (21:32)
[2018-08-29] MEDS: DORZOLAMIDE HCL/TIMOLOL MALEAT DROPS 10 ML BOTTLE OU SCH (21:32)
[2018-08-29] MEDS: LATANOPROST 2.5 ML DROPS OU SCH (21:32)
[2018-08-30 00:15] VITALS: BP 165/68
[2018-08-30 04:37] VITALS: BP 184/79
[2018-08-30] MEDS: INSULIN R PO SS1 SQ SCH ×4 (06:45→22:16)
[2018-08-30] MEDS: METOPROLOL TARTRATE 50 MG TAB PO SCH ×2 (06:46→22:18)
[2018-08-30 06:48] LABS: BASOPHILS % (AUTO) 1.8 % (0.0-5.0); EOSINOPHILS % (AUTO) 7.6 % (0.0-8.0); HEMATOCRIT 26.7 % (36-48); LYMPHOCYTES % (AUTO) 23.6 % (21.0-51.0); MEAN CORPUSCULAR HEMOGLOBIN 27.4 pg (27.0-33.0); MEAN CORPUSCULAR HGB CONC 33.1 g/dL (32.0-36.0); MEAN CORPUSCULAR VOLUME 82.9 fL (79-99); MONOCYTES % (AUTO) 10.1 % (3.0-13.0); NEUTROPHILS % (AUTO) 56.9 % (40.0-77.0); PLATELET COUNT (AUTO) 273 K/uL (130-400); RED BLOOD CELL COUNT(AUTO) 3.22 MIL/uL (4.00-5.50); RED CELL DISTRIBUTION WIDTH 17.1 % (11.0-15.5); WHITE BLOOD COUNT (AUTO) 7.3 K/uL (4.8-10.8)
[2018-08-30 06:55] LABS: CREATININE 3.4 mg/dL (0.5-1.5); POTASSIUM 3.6 mmol/L (3.5-5.1)
[2018-08-30 07:00] VITALS: BP 185/76
[2018-08-30 07:15] LABS: HEPATITIS Bs ANTIGEN SCREEN P Negative (Negative)
[2018-08-30] MEDS ORDERED: INSULIN GLARGINE 100 UNITS/ML 10 ML VIAL SQ SCH ×2 (08:00→17:00)
[2018-08-30] MEDS: FOLIC ACID/VITAMIN B COMP W-C 1 MG CAP/TAB PO SCH (08:24)
[2018-08-30] MEDS: DOCUSATE SODIUM 100 MG CAP PO SCH (08:25)
[2018-08-30] MEDS: ASPIRIN 81 MG EC TAB PO SCH (08:35)
[2018-08-30] MEDS: AMLODIPINE BESYLATE 5 MG TAB PO SCH (08:35)
[2018-08-30] MEDS: FAMOTIDINE/PF 20 MG/2 ML VIAL IV SCH (08:36)
[2018-08-30] MEDS: DORZOLAMIDE HCL/TIMOLOL MALEAT DROPS 10 ML BOTTLE OU SCH ×2 (08:36→22:20)
[2018-08-30] MEDS: BRIMONIDINE TARTRATE 0.2% 5 ML BOTTLE OU SCH ×2 (08:37→22:20)
[2018-08-30] MEDS: ACETAMINOPHEN EXTRA STRENGTH 500 MG TABLET PO SCH ×2 (08:37→22:18)
[2018-08-30] MEDS ORDERED: PANTOPRAZOLE SODIUM 40 MG TABLET.DR PO SCH (09:00)
--- NOTE | 2018-08-30 10:42 | NUR ---
DR. DARDEN ROUNDED DR. DARDEN NOTIFIED ABOUT PT HIGH BP RESULTS OVER THE NIGHT, PT NOT ANY PRN MEDS TO CONTROL HER BP, DR. DARDEN STATED HE DOES NOT WANT PT ON ANY PRN BP MEDS, PT TO BE DIALYZED TODAY AND MONDAY, ADELSO STATED CHAIR TO BE ARRANGE IN [facility] FOR WHICH PT HAS A HIGHER CHANCE OF GETTING A CHAIR, BUT HOME HEALTH PROVIDER STATED IT WAS PT CHOICE TO HAVE A CHAIR ARRANGE FOR HER IN [place] NEAR DR. DARDEN'S OFFICE. DR. DARDEN TO BE UPDATED ON THIS NEW INFO. DR. DARDEN PAGED, PENDING CALL BACK.
[2018-08-30 11:00] VITALS: BP 195/77
--- NOTE | 2018-08-30 11:00 | NUR ---
CM Note: Cancel [facility] no bed, [facility] Mick Morales pending approval and chair time CM met with pt made aware [facility] is full no chair available at this time, pt agreeable for plan B [facility]. Faxed order and clinicals, confirmation received. Pt pending approval and chair time, pt pending AV access w/Dr Moya. Primary nurse aware. CM to cont to follow up.
--- NOTE | 2018-08-30 15:25 | NUR ---
CM Note: [facility] [place] preliminary chair TTS 4th shift Spoke to Bettie ugalde/[facility] [place], preliminary chair time TTS 4th shift around 6pm. Pending final approval at this time. Primary nurse aware. CM to cont to follow up.
[2018-08-30 16:00] VITALS: BP 104/56
[2018-08-30 19:56] VITALS: BP 162/64
[2018-08-30] MEDS: EZETIMIBE 10 MG TAB PO SCH (22:17)
[2018-08-30] MEDS: ATORVASTATIN CALCIUM 40 MG TABLET PO SCH (22:19)
[2018-08-30] MEDS: LATANOPROST 2.5 ML DROPS OU SCH (22:20)
[2018-08-31] VITALS (7 sets, daily range): BP systolic 147–178; BP diastolic 67–75
[2018-08-31] MEDS: DEXTROSE 50%-WATER 50 ML DISP.SYRIN IV PRN ×2 (02:24→06:28)
[2018-08-31 02:42] LABS: HEMATOCRIT 28.5 % (36-48); MEAN CORPUSCULAR HEMOGLOBIN 27.3 pg (27.0-33.0); MEAN CORPUSCULAR HGB CONC 32.6 g/dL (32.0-36.0); MEAN CORPUSCULAR VOLUME 83.6 fL (79-99); PLATELET COUNT (AUTO) 295 K/uL (130-400); RED BLOOD CELL COUNT(AUTO) 3.41 MIL/uL (4.00-5.50); RED CELL DISTRIBUTION WIDTH 17.3 % (11.0-15.5); WHITE BLOOD COUNT (AUTO) 9.6 K/uL (4.8-10.8)
[2018-08-31 02:45] LABS: CREATININE 2.7 mg/dL (0.5-1.5); PHOSPHORUS 3.9 mg/dL (2.5-4.9)
[2018-08-31 02:55] LABS: POTASSIUM 2.9 mmol/L (3.5-5.1)
[2018-08-31] MEDS: INSULIN R PO SS1 SQ SCH ×4 (06:38→21:33)
[2018-08-31] MEDS: ACETAMINOPHEN EXTRA STRENGTH 500 MG TABLET PO SCH (09:00)
[2018-08-31] MEDS: FOLIC ACID/VITAMIN B COMP W-C 1 MG CAP/TAB PO SCH (09:12)
[2018-08-31] MEDS: DOCUSATE SODIUM 100 MG CAP PO SCH (09:12)
[2018-08-31] MEDS: AMLODIPINE BESYLATE 5 MG TAB PO SCH (09:12)
[2018-08-31] MEDS: METOPROLOL TARTRATE 50 MG TAB PO SCH ×2 (09:12→21:36)
[2018-08-31] MEDS: ASPIRIN 81 MG EC TAB PO SCH (09:12)
[2018-08-31] MEDS: FAMOTIDINE/PF 20 MG/2 ML VIAL IV SCH (09:13)
[2018-08-31] MEDS: BRIMONIDINE TARTRATE 0.2% 5 ML BOTTLE OU SCH ×2 (09:15→21:36)
[2018-08-31] MEDS: DORZOLAMIDE HCL/TIMOLOL MALEAT DROPS 10 ML BOTTLE OU SCH ×2 (09:16→21:36)
[2018-08-31] MEDS: INSULIN GLARGINE 100 UNITS/ML 10 ML VIAL SQ SCH (17:38)
--- NOTE | 2018-08-31 20:23 | NUR ---
MD JAVAD STUBBS Patient has a potassium level of 2.9; patient is a dialysis patient. Paged MD river transportation worker to see if potassium coverage is needed. MD Mar Stubbs returned page. Informed MD Stubbs of potassium result and that patient is a hemodialysis patient. states that potassium is ok and to make sure patient has a bmp in am. No orders were obtained for potassium. Will continue to monitor patient.
[2018-08-31] MEDS ORDERED: INSULIN GLARGINE 100 UNITS/ML 10 ML VIAL SQ SCH (21:00)
[2018-08-31] MEDS: ATORVASTATIN CALCIUM 40 MG TABLET PO SCH (21:36)
[2018-08-31] MEDS: LATANOPROST 2.5 ML DROPS OU SCH (21:36)
[2018-08-31] MEDS: EZETIMIBE 10 MG TAB PO SCH (21:41)
[2018-09-01] VITALS (24 sets, daily range): BP systolic 112–185; BP diastolic 56–79
[2018-09-01 04:45] LABS: HEMATOCRIT 26.7 % (36-48); MEAN CORPUSCULAR HEMOGLOBIN 27.3 pg (27.0-33.0); MEAN CORPUSCULAR HGB CONC 32.5 g/dL (32.0-36.0); PLATELET COUNT (AUTO) 247 K/uL (130-400); RED BLOOD CELL COUNT(AUTO) 3.18 MIL/uL (4.00-5.50); RED CELL DISTRIBUTION WIDTH 17.5 % (11.0-15.5); WHITE BLOOD COUNT (AUTO) 7.7 K/uL (4.8-10.8)
[2018-09-01 05:00] LABS: POTASSIUM 3.2 mmol/L (3.5-5.1)
[2018-09-01 05:17] LABS: BAND NEUTROPHILS % (MANUAL) 3 % (0-2); BASOPHILS % (MANUAL) 2 % (0-2); EOSINOPHILS % (MANUAL) 3 % (1-6); LYMPHOCYTES % (MANUAL) 18 % (22-44); MAN.DIFF COMMENT-IMPRESSION MANUAL DIFFERENTIAL; MONOCYTES % (MANUAL) 7 % (2-9); PLATELET MORPHOLOGY COMMENT ADEQUATE; SEGMENTED NEUTROPHILS % 67 % (40-70)
[2018-09-01] MEDS: DEXTROSE 50%-WATER 50 ML DISP.SYRIN IV PRN ×2 (05:47→14:51)
[2018-09-01] MEDS: INSULIN R PO SS1 SQ SCH ×4 (07:30→21:00)
[2018-09-01] MEDS: INSULIN GLARGINE 100 UNITS/ML 10 ML VIAL SQ SCH ×2 (08:00→17:00)
[2018-09-01] MEDS: DOCUSATE SODIUM 100 MG CAP PO SCH (09:00)
[2018-09-01] MEDS: DORZOLAMIDE HCL/TIMOLOL MALEAT DROPS 10 ML BOTTLE OU SCH ×2 (09:00→21:57)
[2018-09-01] MEDS: BRIMONIDINE TARTRATE 0.2% 5 ML BOTTLE OU SCH ×2 (09:00→21:56)
[2018-09-01] MEDS: ASPIRIN 81 MG EC TAB PO SCH (09:00)
[2018-09-01] MEDS: FOLIC ACID/VITAMIN B COMP W-C 1 MG CAP/TAB PO SCH (09:00)
[2018-09-01] MEDS: AMLODIPINE BESYLATE 5 MG TAB PO SCH (11:36)
[2018-09-01] MEDS: FAMOTIDINE/PF 20 MG/2 ML VIAL IV SCH (11:37)
[2018-09-01] MEDS: METOPROLOL TARTRATE 50 MG TAB PO SCH ×2 (11:37→21:56)
[2018-09-01] MEDS ORDERED: ROPIVACAINE 0.5% 5MG/ML 30ML IJ ONE (15:27)
[2018-09-01] MEDS ORDERED: MIDAZOLAM HCL 1 MG/ML 5ML VIAL ONE (15:27)
[2018-09-01] MEDS: CEFAZOLIN SODIUM 1 GM VIAL IVP SCH ×2 (15:45→16:04)
[2018-09-01] MEDS ORDERED: BACITRACIN 50,000 UNIT VIAL ONE (15:54)
[2018-09-01] MEDS: BACITRACIN 50,000 UNIT VIAL ONE (16:25)
--- NOTE | 2018-09-01 18:54 | NUR ---
Status post av fistula to left upper extremity . arm is warm .radial pulse palpable, capillary refill less than 3 sec. good color. patient received block to area on procedure . arm elevated on pillows . dressing to area clean and dry
[2018-09-01] MEDS: EZETIMIBE 10 MG TAB PO SCH (21:56)
[2018-09-01] MEDS: ATORVASTATIN CALCIUM 40 MG TABLET PO SCH (21:56)
[2018-09-01] MEDS: LATANOPROST 2.5 ML DROPS OU SCH (21:57)
[2018-09-02] VITALS (7 sets, daily range): BP systolic 138–175; BP diastolic 59–78
[2018-09-02 06:21] LABS: HEMATOCRIT 26.6 % (36-48); MEAN CORPUSCULAR HEMOGLOBIN 27.1 pg (27.0-33.0); MEAN CORPUSCULAR HGB CONC 31.5 g/dL (32.0-36.0); PLATELET COUNT (AUTO) 244 K/uL (130-400); RED BLOOD CELL COUNT(AUTO) 3.09 MIL/uL (4.00-5.50); WHITE BLOOD COUNT (AUTO) 7.7 K/uL (4.8-10.8)
[2018-09-02 06:35] LABS: CREATININE 3.8 mg/dL (0.5-1.5); PHOSPHORUS 4.5 mg/dL (2.5-4.9); POTASSIUM 3.9 mmol/L (3.5-5.1)
[2018-09-02] MEDS: INSULIN R PO SS1 SQ SCH ×4 (06:41→23:33)
[2018-09-02] MEDS: DOCUSATE SODIUM 100 MG CAP PO SCH (08:23)
[2018-09-02] MEDS: ASPIRIN 81 MG EC TAB PO SCH (08:23)
[2018-09-02] MEDS: METOPROLOL TARTRATE 50 MG TAB PO SCH ×2 (08:23→20:21)
[2018-09-02] MEDS: FOLIC ACID/VITAMIN B COMP W-C 1 MG CAP/TAB PO SCH (08:23)
[2018-09-02] MEDS: FAMOTIDINE/PF 20 MG/2 ML VIAL IV SCH (08:24)
[2018-09-02] MEDS: AMLODIPINE BESYLATE 5 MG TAB PO SCH (08:24)
[2018-09-02] MEDS: INSULIN GLARGINE 100 UNITS/ML 10 ML VIAL SQ SCH ×2 (08:29→18:14)
[2018-09-02] MEDS: BRIMONIDINE TARTRATE 0.2% 5 ML BOTTLE OU SCH ×2 (08:35→20:21)
[2018-09-02] MEDS: DORZOLAMIDE HCL/TIMOLOL MALEAT DROPS 10 ML BOTTLE OU SCH ×2 (08:43→20:22)
[2018-09-02] MEDS: LISINOPRIL 20 MG TABLET PO SCH (18:09)
[2018-09-02] MEDS: ATORVASTATIN CALCIUM 40 MG TABLET PO SCH (20:20)
[2018-09-02] MEDS: EZETIMIBE 10 MG TAB PO SCH (20:21)
[2018-09-02] MEDS: LATANOPROST 2.5 ML DROPS OU SCH (20:22)
[2018-09-03] VITALS: BP 160/70
[2018-09-03 04:08] VITALS: BP 153/67
[2018-09-03] MEDS: INSULIN R PO SS1 SQ SCH ×3 (05:56→17:10)
[2018-09-03 06:12] LABS: HEMATOCRIT 24.6 % (36-48); MEAN CORPUSCULAR HEMOGLOBIN 27.5 pg (27.0-33.0); MEAN CORPUSCULAR HGB CONC 32.7 g/dL (32.0-36.0); PLATELET COUNT (AUTO) 246 K/uL (130-400); RED BLOOD CELL COUNT(AUTO) 2.93 MIL/uL (4.00-5.50); RED CELL DISTRIBUTION WIDTH 17.5 % (11.0-15.5); WHITE BLOOD COUNT (AUTO) 8.4 K/uL (4.8-10.8)
[2018-09-03 06:21] LABS: PHOSPHORUS 5.5 mg/dL (2.5-4.9); POTASSIUM 3.3 mmol/L (3.5-5.1)
[2018-09-03 07:03] LABS: BASOPHILS % (MANUAL) 1 % (0-2); EOSINOPHILS % (MANUAL) 5 % (1-6); LYMPHOCYTES % (MANUAL) 24 % (22-44); MONOCYTES % (MANUAL) 4 % (2-9); SEGMENTED NEUTROPHILS % 66 % (40-70)
[2018-09-03 07:04] LABS: MAN.DIFF COMMENT-IMPRESSION MANUAL DIFFERENTIAL; PLATELET MORPHOLOGY COMMENT ADEQUATE
[2018-09-03 08:00] VITALS: BP 159/62
[2018-09-03] MEDS: INSULIN GLARGINE 100 UNITS/ML 10 ML VIAL SQ SCH ×2 (08:00→17:09)
--- NOTE | 2018-09-03 08:00 | NUR ---
PT AAO X 3 REVIEW PLAN OF CARE. DENIES ANY SOB/ PT HAS A AV FISCULA TO HER LT UPPER ARM WITH A GOOD THRILL AND BRUIT AND HAS A DRSG TO SITE, PT TO KEEP ELEVATED UP ON PILLOW. . PT ALSO HAS A PERMA CATH FOR DIALYSIS TREATMENT . . TO HER RT CHEST. . DRESSING DRY AND CLEAN.. NO DIALYSIS TODAY. WAITING FOR A DIALYSIS CHAIR . CALL LIGHT IN REACH.
[2018-09-03] MEDS ORDERED: LISINOPRIL 20 MG TABLET PO SCH (09:00)
[2018-09-03] MEDS: DOCUSATE SODIUM 100 MG CAP PO SCH (09:37)
[2018-09-03] MEDS: AMLODIPINE BESYLATE 5 MG TAB PO SCH (09:37)
[2018-09-03] MEDS: ASPIRIN 81 MG EC TAB PO SCH (09:37)
[2018-09-03] MEDS: METOPROLOL TARTRATE 50 MG TAB PO SCH (09:37)
[2018-09-03] MEDS: FAMOTIDINE/PF 20 MG/2 ML VIAL IV SCH (09:38)
[2018-09-03] MEDS: FOLIC ACID/VITAMIN B COMP W-C 1 MG CAP/TAB PO SCH (09:38)
[2018-09-03] MEDS: BRIMONIDINE TARTRATE 0.2% 5 ML BOTTLE OU SCH (09:39)
[2018-09-03] MEDS: DORZOLAMIDE HCL/TIMOLOL MALEAT DROPS 10 ML BOTTLE OU SCH (09:39)
--- NOTE | 2018-09-03 10:24 | NUR ---
CM Note: [facility] approved chair time TTS 4th shift around 6pm Spoke to Bettie ugalde/[facility], received updated clinicals. Pt has approval and chair time TTS 4th shift around 6pm. Facility will call patient for exact appointment time. Pt and family given instructions and address to facility. Pt aware to bring valid ID and insurance card, all medications bottles to [facility]. Primary nurse aware. CM to cont to follow up.
[2018-09-03] MEDS: LISINOPRIL 20 MG TABLET PO SCH (11:30)
[2018-09-03 12:00] VITALS: BP 163/70
[2018-09-03] MEDS ORDERED: LOSA100T58 PO (13:49)
[2018-09-03 16:00] VITALS: BP 161/68
--- NOTE | 2018-09-03 16:13 | NUR ---
RDSCREEN - LOS x 6 Pt tolerating Dialysis diet with no report of GI distress and PO intake at 100%. Pt LBM 09/02/18. Pt overweight for age (BMI 28.8). Pt monitored labs: K 3.3, BUN 36, Cr 4.0, GFR 12, Glu 134, Ca 8.3, P 5.5, Alb 2.6. Pt denies need for diet education. Pt with no other nutrition concerns at this time. RD to continue to monitor. Please notify RD as nutrition concerns arise. Thank you. Addendum: 09/03/18 at [address] RD Amended: Links added.
--- NOTE | 2018-09-03 18:45 | NUR ---
DISCHARGE SUMMARY WAS REVIEW WITH PT. APPT. AND MEDICATIONS TO FOLLOW. PRIMARY DR. IN DR. DARDEN. .. PT HAS A DIALYSIS CHAIR .SETUP [facility] THE [place]. APPT SETUP WITH DR. CORBIN . CALLED FOR CLEARANCE, SL TO HER RT WRIST DC ,WITH NO HEMATOMA NOTED .DRSG TO HER AV FISCULA CHECK DRY AND CLEAN. . OFFER NO C/O OF DISCOMFORT .
== END 2018-09-03 18:35 | disposition home or self-care (01) | DRG 264 ==
LOC: EDH 09:34 → EDHIP 11:04 → 3CH 17:49
PROVIDERS: ADMIT Internal Medicine Nephrology; ATTEND Internal Medicine Nephrology
PROC: 5A1D70Z Performance of Urinary Filtration, Intermittent, Less than 6 Hours Per Day (ICD-10-PCS; principal; 2018-08-28)
PROC: 5A1D70Z Performance of Urinary Filtration, Intermittent, Less than 6 Hours Per Day (ICD-10-PCS; 2018-08-28)
PROC: 5A1D70Z Performance of Urinary Filtration, Intermittent, Less than 6 Hours Per Day (ICD-10-PCS; 2018-08-28)
PROC: 5A1D70Z Performance of Urinary Filtration, Intermittent, Less than 6 Hours Per Day (ICD-10-PCS; 2018-08-28)
PROC: 0JH63XZ Insertion of Tunneled Vascular Access Device into Chest Subcutaneous Tissue and Fascia, Percutaneous Approach (ICD-10-PCS; 2018-08-31)
PROC: 02H633Z Insertion of Infusion Device into Right Atrium, Percutaneous Approach (ICD-10-PCS; 2018-08-31)
PROC: B2141ZZ Fluoroscopy of Right Heart using Low Osmolar Contrast (ICD-10-PCS; 2018-08-31)
PROC: B244ZZZ Ultrasonography of Right Heart (ICD-10-PCS; 2018-08-31)
PROC: 03170ZD Bypass Right Brachial Artery to Upper Arm Vein, Open Approach (ICD-10-PCS; 2018-09-01)
DX: I13.2 Hypertensive heart and chronic kidney disease with heart failure and with stage 5 chronic kidney disease, or end stage renal disease (principal); N18.6 End stage renal disease; J96.90 Respiratory failure, unspecified, unspecified whether with hypoxia or hypercapnia; E87.70 Fluid overload, unspecified; E11.22 Type 2 diabetes mellitus with diabetic chronic kidney disease; D64.9 Anemia, unspecified; E11.21 Type 2 diabetes mellitus with diabetic nephropathy; E11.51 Type 2 diabetes mellitus with diabetic peripheral angiopathy without gangrene; E11.610 Type 2 diabetes mellitus with diabetic neuropathic arthropathy; E78.5 Hyperlipidemia, unspecified; H40.9 Unspecified glaucoma; I25.10 Atherosclerotic heart disease of native coronary artery without angina pectoris; I50.9 Heart failure, unspecified; Z95.1 Presence of aortocoronary bypass graft; Z90.710 Acquired absence of both cervix and uterus; Z83.3 Family history of diabetes mellitus
CPT/HCPCS: 36415; 36558; 71045; 77001; 80048; 80053; 80061; 81001; 82040; 82565; 82728; 82947; 82948; 83036; 83540; 83550; 83690; 83735; 83880; 84100; 84132; 84484; 84520; 85014; 85018; 85025; 85027; 85610; 85730; 86701; 86704; 86706; 87340; 87390; 87520; 90935; 93005; 93970; C1750; G0378; J1644; J1815; J2250; J2405; J2795; J3490; J7030; J7070

== ENCOUNTER → 2018-10-17 | Outpatient (CLI) | payer BC, MEDICARE ==
[~2018-10-17] MED LIST changes: +DOCU100C33 PO; -DOCU50CA13 PO; -FAMO-136 PO; -FERS325 PO; +FOLI0.8T22 PO; -FOLI1CAP2 PO; +LOSA100T58 PO; +PANT40TA25 PO; -TORS100T16 PO
== END | disposition home or self-care (01) ==
LOC: RAH 12:25
PROVIDERS: ATTEND Thoracic Surgery (Cardiothoracic Vascular Surgery)
DX: I12.0 Hypertensive chronic kidney disease with stage 5 chronic kidney disease or end stage renal disease (principal); E11.22 Type 2 diabetes mellitus with diabetic chronic kidney disease; N18.6 End stage renal disease; Z99.2 Dependence on renal dialysis
CPT/HCPCS: 93990

== ENCOUNTER 2018-11-23 07:00 | Day surgery (SDC) | payer BC, MEDICARE ==
[2018-11-22 11:24] VITALS: BP 149/55
[2018-11-22 11:42] LABS: BASOPHILS % (AUTO) 0.3 % (0.0-5.0); EOSINOPHILS % (AUTO) 6.3 % (0.0-8.0); HEMATOCRIT 33.5 % (36-48); LYMPHOCYTES % (AUTO) 14.3 % (21.0-51.0); MEAN CORPUSCULAR HEMOGLOBIN 28.3 pg (27.0-33.0); MEAN CORPUSCULAR HGB CONC 31.8 g/dL (32.0-36.0); MEAN CORPUSCULAR VOLUME 89.1 fL (79-99); MONOCYTES % (AUTO) 9.5 % (3.0-13.0); NEUTROPHILS % (AUTO) 69.6 % (40.0-77.0); PLATELET COUNT (AUTO) 152 K/uL (130-400); RED BLOOD CELL COUNT(AUTO) 3.76 MIL/uL (4.00-5.50); RED CELL DISTRIBUTION WIDTH 18.5 % (11.0-15.5); WHITE BLOOD COUNT (AUTO) 6.8 K/uL (4.8-10.8)
[2018-11-22 11:48] LABS: HEMOGLOBIN A1C 9.6 % (4.0-6.0); INR 0.96 (0.85-1.15); PARTIAL THROMBOPLASTIN TIME 30.3 SEC (26.3-35.5); PROTHROMBIN TIME 10.1 SEC (9.6-11.6)
[2018-11-22 11:53] LABS: CREATININE 2.5 mg/dL (0.5-1.5); POTASSIUM 3.9 mmol/L (3.5-5.1)
--- NOTE | 2018-11-22 13:36 | NUR ---
LABS ABNORMAL LABS REPORTED TO PITA GRAHAM RN , PER DR. EMERALD CORNELL TO PROCEED WITH PLANNED SURGERY. ALSO REPORTED THAT PATIENT C/O DRY CONSTANT COUGH, NO FEVER, PHLEGM ,OR CHILLS PER PATIENT. PER DR. EMERALD CORNELL TO PROCEED WITH SURGERY Addendum: 11/22/18 at 1340 by SHERIF HOSKINS RN all above information informed to Dr. Dawson not Dr. Moya.
[2018-11-23] VITALS (15 sets, daily range): BP systolic 134–168; BP diastolic 54–69
[~2018-11-23] VITALS: Ht 163.8 cm; Wt 72.7 kg
[2018-11-23] MEDS: CEFUROXIME SODIUM 1.5 GM VIAL IVP SCH ×2 (05:00→08:45)
[~2018-11-23 07:00] MED LIST changes: -ACET500C44 PO; -AEC81 PO; -COSO10OS OU; +DOCU-116 PO; -DOCU100C33 PO; +DORZ1DRO7 OU; +FAMO20TA8 PO; +SEVE800T27 PO; +TORS100T16 PO; -TYL3 PO
[2018-11-23] MEDS ORDERED: SODIUM CHLORIDE 0.9% 1000ML 1,000 ML IV ONE (08:06)
[2018-11-23] MEDS ORDERED: BACITRACIN 50,000 UNIT VIAL ONE (08:23)
[2018-11-23] MEDS ORDERED: BUPIVACAINE/PF 0.5% 30ML VIAL ONE (08:23)
[2018-11-23] MEDS ORDERED: LIDOCAINE HCL 1% 20 ML VIAL ONE (08:23)
[2018-11-23] MEDS ORDERED: PROPOFOL 10 MG/ML 20ML VIAL IV ONE (08:31)
[2018-11-23] MEDS ORDERED: FENTANYL CITRATE PF 50 MCG/1 ML 5ML AMP IV ONE (08:31)
[2018-11-23] MEDS ORDERED: ROCURONIUM 10MG/1ML SYR 10 MG/ML ML ONE (08:31)
[2018-11-23] MEDS ORDERED: MIDAZOLAM HCL 1 MG/ML 2ML VIAL ONE (08:31)
[2018-11-23] MEDS ORDERED: LIDOCAINE PF 2% 5ML ABBOJECT ONE (08:31)
[2018-11-23] MEDS ORDERED: GLYCOPYRROLATE 1 MG/5 ML SYRINGE ONE (09:08)
[2018-11-23] MEDS ORDERED: EPHEDRINE SULFATE 50 MG/ML AMPULE ONE (09:09)
[2018-11-23] MEDS ORDERED: NEOSTIGMINE 5MG/5ML SYR IV ONE (09:09)
[2018-11-23] MEDS ORDERED: TRAMADOL HCL 50 MG TABLET PO PRN ×2 (11:00)
[2018-11-23] MEDS ORDERED: MORPHINE SULFATE 2 MG/ML 1ML SYG IV PRN ×2 (11:00)
[2018-11-23] MEDS ORDERED: ACETAMINOPHEN 325 MG TAB PO PRN (11:00)
--- NOTE | 2018-11-23 11:25 | NUR ---
PT TO PACU, HAS NEW AVF TO LEFT AC AREA. PT'S DRESSING CDI. PT ABLE TO MOVE ALL FINGERS. PT WITH GOOD CAPILLARY REFILL, GOOD RADIAL PULSE. PT HAS DIALYSIS TO ACCESS TO RT SUBCLAVIAN. Addendum: 11/23/18 at 1144 by EVENS RAGSDALE RN RN Amended: Links added.
[2018-11-23] MEDS ORDERED: MEPERIDINE-PF 25 MG/ML SYG ONE (12:06)
== END 2018-11-23 13:36 | disposition home or self-care (01) ==
LOC: DAH 07:00
PROVIDERS: ATTEND Thoracic Surgery (Cardiothoracic Vascular Surgery)
DX: E11.22 Type 2 diabetes mellitus with diabetic chronic kidney disease (principal); I13.2 Hypertensive heart and chronic kidney disease with heart failure and with stage 5 chronic kidney disease, or end stage renal disease; I50.9 Heart failure, unspecified; N18.6 End stage renal disease; I25.10 Atherosclerotic heart disease of native coronary artery without angina pectoris; E78.5 Hyperlipidemia, unspecified; Z98.890 Other specified postprocedural states; Z79.82 Long term (current) use of aspirin; Z79.899 Other long term (current) drug therapy; Z99.2 Dependence on renal dialysis; Z95.1 Presence of aortocoronary bypass graft; Z90.710 Acquired absence of both cervix and uterus
CPT/HCPCS: 36415; 36832; 71046; 80048; 82948 ×2; 83036; 85025; 85610; 85730; 93005; A4215; A4221; A4222; A4223; A4452; A4649; A4663; A4930; A6207; A6260; A6446; C1713 ×2; G0168; J0697; J1644; J2001; J2175; J2250; J2704; J2710; J3010; J3490 ×2; J7030 ×2

== ENCOUNTER 2018-12-21 19:29 | Emergency (ER) | payer BC, MEDICARE ==
[~2018-12-21 19:29] MED LIST changes: -FOLI0.8T22 PO
[2018-12-21 20:21] LABS: BASOPHILS % (AUTO) 0.9 % (0.0-5.0); EOSINOPHILS % (AUTO) 2.4 % (0.0-8.0); HEMATOCRIT 34.8 % (36-48); LYMPHOCYTES % (AUTO) 13.5 % (21.0-51.0); MEAN CORPUSCULAR HEMOGLOBIN 28.1 pg (27.0-33.0); MEAN CORPUSCULAR HGB CONC 31.9 g/dL (32.0-36.0); MEAN CORPUSCULAR VOLUME 88.2 fL (79-99); MONOCYTES % (AUTO) 9.8 % (3.0-13.0); NEUTROPHILS % (AUTO) 73.4 % (40.0-77.0); NUCLEATED RED BLOOD CELLS 0.1 % (0.0-0.19); PLATELET COUNT (AUTO) 183 K/uL (130-400); RED BLOOD CELL COUNT(AUTO) 3.94 MIL/uL (4.00-5.50); RED CELL DISTRIBUTION WIDTH 17.6 % (11.0-15.5); WHITE BLOOD COUNT (AUTO) 8.1 K/uL (4.8-10.8)
[2018-12-21 20:30] LABS: APPEARANCE,URINE CLOUDY (CLEAR); BILIRUBIN,URINE SMALL (NEGATIVE); COLOR,URINE YELLOW (YELLOW); GLUCOSE, URINE (UA) >=1000 mg/dL (NEGATIVE); KETONES,URINE 15 mg/dL (NEGATIVE); LEUKOCYTE ESTERASE ,URINE TRACE (NEGATIVE); NITRATE,URINE NEGATIVE (NEGATIVE); OCCULT BLOOD,URINE SMALL (NEGATIVE); PH,URINE 5.5 (5.0-8.0); PROTEIN,URINE >=300 mg/dL (NEGATIVE); UROBILINOGEN,URINE 0.2 mg/dL (0.2-1.0)
[2018-12-21] MEDS ORDERED: INSULIN HUMULIN R 100 UNIT/ML 3ML ONE ×2 (20:31→22:47)
[2018-12-21 20:38] LABS: ALBUMIN 2.9 g/dL (3.5-5.0); BILIRUBIN,DIRECT 0.1 mg/dL (0.0-0.3); BILIRUBIN,TOTAL 0.4 mg/dL (0.2-1.0); POTASSIUM 4.5 mmol/L (3.5-5.1); TOTAL PROTEIN, SERUM 6.8 g/dL (6.0-8.3)
[2018-12-21 20:43] LABS: BACTERIA,URINE Few /HPF (None Seen); SQUAMOUS EPITHELIAL CELL,UR Many /HPF (0-2); YEAST,URINE BUDDING Few /HPF (None Seen)
[2018-12-21] MEDS ORDERED: ONDANSETRON HCL 4 MG/2 ML VIAL ONE (22:47)
== END 2018-12-22 01:05 | disposition home or self-care (01) ==
LOC: EDH 19:29
DX: E11.65 Type 2 diabetes mellitus with hyperglycemia (principal); J06.9 Acute upper respiratory infection, unspecified; E11.22 Type 2 diabetes mellitus with diabetic chronic kidney disease; I12.9 Hypertensive chronic kidney disease with stage 1 through stage 4 chronic kidney disease, or unspecified chronic kidney disease; N18.9 Chronic kidney disease, unspecified; I25.10 Atherosclerotic heart disease of native coronary artery without angina pectoris; Z99.2 Dependence on renal dialysis; Z90.710 Acquired absence of both cervix and uterus; Z79.4 Long term (current) use of insulin
CPT/HCPCS: 36415; 71046; 80048; 80076; 81001; 82550; 82948 ×3; 83880; 84484; 85025; 87804 ×2; 96374; 96375; 96376; 99285; J1815 ×2; J2405

== ENCOUNTER 2020-11-13 18:59 | Emergency (ER) | payer MEDICARE, BC ==
[~2020-11-13] VITALS: Ht 160 cm; Wt 72.6 kg
[~2020-11-13 18:59] MED LIST changes: +AMLO-258 PO; -AMLO10TA7 PO; -PANT40TA25 PO; +PANT40TA54 PO
[2020-11-13 19:43] LABS: BASOPHILS % (AUTO) 0.9 % (0.0-5.0); EOSINOPHILS % (AUTO) 3.3 % (0.0-8.0); HEMATOCRIT 33.4 % (36-48); LYMPHOCYTES % (AUTO) 14.2 % (21.0-51.0); MEAN CORPUSCULAR HEMOGLOBIN 29.3 pg (27.0-33.0); MEAN CORPUSCULAR HGB CONC 30.8 g/dL (32.0-36.0); MEAN CORPUSCULAR VOLUME 95.2 fL (79-99); MONOCYTES % (AUTO) 7.6 % (3.0-13.0); NEUTROPHILS % (AUTO) 73.7 % (40.0-77.0); PLATELET COUNT (AUTO) 214 K/uL (130-400); RED BLOOD CELL COUNT(AUTO) 3.51 MIL/uL (4.00-5.50); WHITE BLOOD COUNT (AUTO) 11.7 K/uL (4.8-10.8)
[2020-11-13 20:11] LABS: ALBUMIN 3.2 g/dL (3.5-5.0); BILIRUBIN,TOTAL 0.4 mg/dL (0.2-1.0); INR 0.92 (0.85-1.15); POTASSIUM 5.7 mmol/L (3.5-5.1); PROTHROMBIN TIME 10.1 SEC (9.6-11.6); TOTAL PROTEIN, SERUM 6.8 g/dL (6.0-8.3)
[2020-11-13 20:12] LABS: PARTIAL THROMBOPLASTIN TIME 26.2 SEC (26.3-35.5)
[2020-11-13] MEDS ORDERED: ORPHENADRINE CITRATE 30 MG/ML ML IV ONE (20:30)
[2020-11-13] MEDS ORDERED: KETOROLAC 15MG/ML VIAL (15MG/ML) IV ONE (20:30)
[2020-11-13] MEDS ORDERED: 0.9%NACL 1000ML 1,000 ML IV ONE (21:30)
[2020-11-13] MEDS ORDERED: INSULIN HUMULIN R 100 UNIT/ML 3ML IV ONE (21:30)
[2020-11-13] MEDS ORDERED: ORPH-43 PO (21:50)
[2020-11-13 21:59] VITALS: BP 150/47
== END 2020-11-13 22:24 | disposition home or self-care (01) ==
LOC: EDH 18:59
DX: M62.830 Muscle spasm of back (principal); R07.89 Other chest pain; E10.65 Type 1 diabetes mellitus with hyperglycemia; E78.00 Pure hypercholesterolemia, unspecified; I10 Essential (primary) hypertension; I25.10 Atherosclerotic heart disease of native coronary artery without angina pectoris; J45.909 Unspecified asthma, uncomplicated; Z79.1 Long term (current) use of non-steroidal anti-inflammatories (NSAID); Z79.4 Long term (current) use of insulin; Z79.899 Other long term (current) drug therapy; Z89.512 Acquired absence of left leg below knee; Z99.3 Dependence on wheelchair
CPT/HCPCS: 36415; 71045; 80053; 82948; 84484; 85025; 85610; 85730; 93005; 96374; 96375; 99285; J1815; J1885; J2360

== ENCOUNTER 2022-02-01 13:28 | Inpatient (IN) | payer BC, MEDICARE ==
[~2022-02-01] VITALS: Ht 160 cm; Wt 68.2 kg
[2022-02-01] VITALS (11 sets, daily range): BP systolic 133–177; BP diastolic 49–65
[~2022-02-01 13:28] MED LIST changes: +ORPH-43 PO
[2022-02-01 14:23] LABS: BASOPHILS % (AUTO) 0.5 % (0.0-5.0); EOSINOPHILS % (AUTO) 0.9 % (0.0-8.0); HEMATOCRIT 37.1 % (36-48); LYMPHOCYTES % (AUTO) 6.2 % (21.0-51.0); MEAN CORPUSCULAR HEMOGLOBIN 28.5 pg (27.0-33.0); MEAN CORPUSCULAR VOLUME 91.8 fL (79-99); MONOCYTES % (AUTO) 6.6 % (3.0-13.0); NEUTROPHILS % (AUTO) 85.2 % (40.0-77.0); PLATELET COUNT (AUTO) 240 K/uL (130-400); RED BLOOD CELL COUNT(AUTO) 4.04 MIL/uL (4.00-5.50); RED CELL DISTRIBUTION WIDTH 17.4 % (11.0-15.5); WHITE BLOOD COUNT (AUTO) 17.5 K/uL (4.8-10.8)
[2022-02-01 14:28] LABS: APPEARANCE,URINE CLEAR (CLEAR); BILIRUBIN,URINE NEGATIVE (NEGATIVE); COLOR,URINE LIGHT-YELLOW (YELLOW); GLUCOSE, URINE (UA) >=1000 mg/dL (NEGATIVE); KETONES,URINE NEGATIVE (NEGATIVE); LEUKOCYTE ESTERASE ,URINE NEGATIVE Leu/uL (NEGATIVE); NITRATE,URINE NEGATIVE (NEGATIVE); OCCULT BLOOD,URINE SMALL (NEGATIVE); PROTEIN,URINE 600 mg/dL (NEGATIVE); UROBILINOGEN,URINE 0.2 mg/dL (0.2-1.0)
[2022-02-01 14:30] LABS: BACTERIA,URINE RARE /HPF (None Seen); MUCUS,URINE RARE LPF (None Seen); SQUAMOUS EPITHELIAL CELL,UR FEW /HPF (0-2); YEAST,URINE BUDDING RARE /HPF (None Seen)
[2022-02-01 14:33] LABS: PROTHROMBIN TIME 10.9 SEC (9.6-11.6)
[2022-02-01 14:34] LABS: PARTIAL THROMBOPLASTIN TIME 30.5 SEC (26.3-35.5)
[2022-02-01 14:50] LABS: CREATININE 5.7 mg/dL (0.5-1.5); POTASSIUM 4.7 mmol/L (3.5-5.1)
[2022-02-01 14:55] LABS: ALBUMIN 3.3 g/dL (3.5-5.0); MAGNESIUM 2.4 mg/dL (1.80-2.40); TOTAL PROTEIN, SERUM 7.6 g/dL (6.0-8.3)
[2022-02-01 15:06] LABS: B-TYPE NATRIURETIC PEPTIDE 2270 pg/mL (0-100)
[2022-02-01] MEDS ORDERED: AZITHROMYCIN 500MG+NS 250ML IVPB SCH ×2 (15:30→19:00)
[2022-02-01] MEDS ORDERED: CEFTRIAXONE 1G VIAL IVP SCH (19:00)
[2022-02-01] MEDS ORDERED: IPRATROPIUM/ALBUTEROL SULFATE 3 ML SOLUTION IH PRN (19:00)
[2022-02-01] MEDS: INSULIN HUMULIN R 100 UNIT/ML 3ML SQ SCH (21:00)
[2022-02-01] MEDS ORDERED: ONDANSETRON 4MG INJ ONE (21:16)
[2022-02-01] MEDS ORDERED: ACETAMINOPHEN 500 MG TABLET ONE (22:19)
[2022-02-02] VITALS (17 sets, daily range): BP systolic 130–176; BP diastolic 50–82
[2022-02-02] MEDS ORDERED: CINA30TA5 PO (01:10)
[2022-02-02] MEDS ORDERED: HYDR-4154 PO (01:10)
[2022-02-02] MEDS ORDERED: FOLI0.8T2 PO (01:10)
[2022-02-02] MEDS ORDERED: BENZ-70 PO (01:10)
[2022-02-02] MEDS ORDERED: FLUT1BLS IH (01:10)
[2022-02-02] MEDS ORDERED: ASPI-1443 PO (01:10)
[2022-02-02] MEDS ORDERED: ACET-2079 PO (01:10)
[2022-02-02] MEDS ORDERED: PHEN-719 PO (01:10)
[2022-02-02 05:10] LABS: BASOPHILS % (AUTO) 0.4 % (0.0-5.0); EOSINOPHILS % (AUTO) 0.2 % (0.0-8.0); HEMATOCRIT 32.1 % (36-48); LYMPHOCYTES % (AUTO) 5.7 % (21.0-51.0); MEAN CORPUSCULAR HEMOGLOBIN 27.9 pg (27.0-33.0); MEAN CORPUSCULAR HGB CONC 30.8 g/dL (32.0-36.0); MEAN CORPUSCULAR VOLUME 90.4 fL (79-99); MONOCYTES % (AUTO) 6.7 % (3.0-13.0); NEUTROPHILS % (AUTO) 86.1 % (40.0-77.0); PLATELET COUNT (AUTO) 239 K/uL (130-400); RED BLOOD CELL COUNT(AUTO) 3.55 MIL/uL (4.00-5.50); RED CELL DISTRIBUTION WIDTH 17.6 % (11.0-15.5); WHITE BLOOD COUNT (AUTO) 21.9 K/uL (4.8-10.8)
[2022-02-02 05:26] LABS: CREATININE 4.5 mg/dL (0.5-1.5); POTASSIUM 4.1 mmol/L (3.5-5.1)
[2022-02-02] MEDS: INSULIN HUMULIN R 100 UNIT/ML 3ML SQ SCH ×4 (05:46→21:02)
[2022-02-02] MEDS ORDERED: DOCUSATE SODIUM 100 MG CAP PO PRN (09:30)
[2022-02-02] MEDS ORDERED: VANCOMYCIN PROTOCOL PER PHARMACY IV SCH (09:30)
[2022-02-02] MEDS ORDERED: VANCOMYCIN 1G/250ML KIT 250 ML IV SCH (09:30)
[2022-02-02] MEDS ORDERED: ZOSYN 3.375GM +NS 50ML IV SCH (09:30)
[2022-02-02 11:08] LABS: HEPATITIS B SURFACE ANTIGEN Non-Reactive (Nonreactive)
[2022-02-02] MEDS: ACETAMINOPHEN 500 MG TABLET PO PRN ×2 (11:28→20:52)
[2022-02-02] MEDS ORDERED: PHARMACY COMMUNICATION MISC SCH (13:00)
[2022-02-02] MEDS: EPOETIN ALFA-EPBX (NON-ESRD) 10,000 UNIT/ML VIAL SQ SCH (13:51)
[2022-02-02] MEDS: HYDRALAZINE 25MG TABLET PO SCH ×2 (13:53→20:53)
[2022-02-02] MEDS: BENZONATATE 100 MG CAPSULE PO SCH ×2 (13:53→20:53)
[2022-02-02] MEDS: SEVELAMER HCL 800 MG TABLET PO SCH ×2 (13:53→20:53)
[2022-02-02] MEDS ORDERED: VANCOMYCIN 1.5 GM/250 ML BAG 250 ML IV ONE (15:00)
[2022-02-02] MEDS: ZOSYN 3.375GM +NS 50ML IV SCH (16:26)
[2022-02-02] MEDS ORDERED: INSULIN GLARGINE 100 UNITS/ML 10 ML VIAL SQ SCH (17:00)
[2022-02-02] MEDS: ATORVASTATIN 40 MG TABLET PO SCH (20:53)
[2022-02-03 00:06] VITALS: BP 127/47
[2022-02-03] MEDS ORDERED: DEXTROSE 50%-WATER 50 ML DISP.SYRIN IV ONE (00:51)
[2022-02-03] MEDS ORDERED: DEXTROSE 50%-WATER 50 ML DISP.SYRIN IV PRN (01:00)
[2022-02-03] MEDS ORDERED: GLUCAGON 1MG KIT 1 MG ML IM PRN (01:00)
[2022-02-03] MEDS: ZOSYN 3.375GM +NS 50ML IV SCH ×2 (04:01→16:41)
[2022-02-03 05:04] VITALS: BP 156/56
[2022-02-03 05:19] LABS: BASOPHILS % (AUTO) 0.4 % (0.0-5.0); EOSINOPHILS % (AUTO) 3.2 % (0.0-8.0); HEMATOCRIT 35.9 % (36-48); LYMPHOCYTES % (AUTO) 2.6 % (21.0-51.0); MEAN CORPUSCULAR HGB CONC 30.9 g/dL (32.0-36.0); MEAN CORPUSCULAR VOLUME 90.7 fL (79-99); MONOCYTES % (AUTO) 4.8 % (3.0-13.0); NEUTROPHILS % (AUTO) 88.4 % (40.0-77.0); PLATELET COUNT (AUTO) 254 K/uL (130-400); RED BLOOD CELL COUNT(AUTO) 3.96 MIL/uL (4.00-5.50); RED CELL DISTRIBUTION WIDTH 17.2 % (11.0-15.5); WHITE BLOOD COUNT (AUTO) 16.4 K/uL (4.8-10.8)
[2022-02-03 05:29] LABS: CREATININE 4.9 mg/dL (0.5-1.5); PHOSPHORUS 5.5 mg/dL (2.5-4.9); VANCOMYCIN LEVEL 23.8 mcg/mL (18.0-26.0)
[2022-02-03] MEDS: INSULIN HUMULIN R 100 UNIT/ML 3ML SQ SCH ×4 (05:31→21:22)
[2022-02-03 08:00] VITALS: BP 137/58
[2022-02-03] MEDS: METOPROLOL SUCCINATE 50 MG TAB.SR.24H PO SCH (08:16)
[2022-02-03] MEDS: PANTOPRAZOLE 40 MG TAB DR PO SCH (08:18)
[2022-02-03] MEDS: Vitamin B Complex/Vit C/Folic Acid PO SCH (08:18)
[2022-02-03] MEDS: BENZONATATE 100 MG CAPSULE PO SCH ×3 (08:18→21:15)
[2022-02-03] MEDS: SEVELAMER HCL 800 MG TABLET PO SCH ×3 (08:19→21:14)
[2022-02-03] MEDS: ASPIRIN 81 MG EC TAB PO SCH (08:19)
[2022-02-03] MEDS: CINACALCET 30 MG TAB PO SCH (08:20)
[2022-02-03] MEDS: HYDRALAZINE 25MG TABLET PO SCH ×3 (09:00→21:15)
[2022-02-03] MEDS ORDERED: AMLODIPINE 5 MG TAB ONE (10:47)
[2022-02-03 12:00] VITALS: BP 139/56
[2022-02-03] MEDS: LOSARTAN 100 MG TABLET PO SCH (12:16)
[2022-02-03] MEDS ORDERED: VANCOMYCIN 1G/250ML KIT 250 ML IV SCH (15:00)
[2022-02-03 16:00] VITALS: BP 144/59
[2022-02-03] MEDS: INSULIN GLARGINE 100 UNITS/ML 10 ML VIAL SQ SCH (17:44)
[2022-02-03 20:52] VITALS: BP 124/48
[2022-02-03] MEDS: ATORVASTATIN 40 MG TABLET PO SCH (21:15)
[2022-02-04] VITALS (20 sets, daily range): BP systolic 121–156; BP diastolic 46–86
[2022-02-04] MEDS: ZOSYN 3.375GM +NS 50ML IV SCH ×2 (04:21→16:48)
[2022-02-04 06:15] LABS: BASOPHILS % (AUTO) 0.6 % (0.0-5.0); HEMATOCRIT 32.9 % (36-48); LYMPHOCYTES % (AUTO) 8.2 % (21.0-51.0); MEAN CORPUSCULAR HEMOGLOBIN 27.9 pg (27.0-33.0); MEAN CORPUSCULAR VOLUME 90.1 fL (79-99); MONOCYTES % (AUTO) 9.8 % (3.0-13.0); NEUTROPHILS % (AUTO) 71.9 % (40.0-77.0); PLATELET COUNT (AUTO) 238 K/uL (130-400); RED BLOOD CELL COUNT(AUTO) 3.65 MIL/uL (4.00-5.50); RED CELL DISTRIBUTION WIDTH 17.3 % (11.0-15.5); WHITE BLOOD COUNT (AUTO) 12.6 K/uL (4.8-10.8)
[2022-02-04 06:30] LABS: CREATININE 6.7 mg/dL (0.5-1.5); PHOSPHORUS 5.5 mg/dL (2.5-4.9)
[2022-02-04] MEDS: INSULIN HUMULIN R 100 UNIT/ML 3ML SQ SCH ×4 (06:52→21:53)
[2022-02-04] MEDS: ASPIRIN 81 MG EC TAB PO SCH (08:51)
[2022-02-04] MEDS: PANTOPRAZOLE 40 MG TAB DR PO SCH (08:51)
[2022-02-04] MEDS: Vitamin B Complex/Vit C/Folic Acid PO SCH (08:51)
[2022-02-04] MEDS: SEVELAMER HCL 800 MG TABLET PO SCH ×3 (08:51→21:51)
[2022-02-04] MEDS: HYDRALAZINE 25MG TABLET PO SCH ×3 (08:51→21:51)
[2022-02-04] MEDS: METOPROLOL SUCCINATE 50 MG TAB.SR.24H PO SCH (08:52)
[2022-02-04] MEDS: EPOETIN ALFA-EPBX (NON-ESRD) 10,000 UNIT/ML VIAL SQ SCH (08:52)
[2022-02-04] MEDS: CINACALCET 30 MG TAB PO SCH (08:52)
[2022-02-04] MEDS: LOSARTAN 100 MG TABLET PO SCH (08:52)
[2022-02-04] MEDS: BENZONATATE 100 MG CAPSULE PO SCH ×3 (08:52→21:50)
[2022-02-04] MEDS: VANCOMYCIN 1G/250ML KIT 250 ML IV SCH (15:03)
[2022-02-04] MEDS: INSULIN GLARGINE 100 UNITS/ML 10 ML VIAL SQ SCH (16:59)
[2022-02-04] MEDS: ATORVASTATIN 40 MG TABLET PO SCH (21:50)
[2022-02-05] VITALS: BP 140/51
[2022-02-05] MEDS: ZOSYN 3.375GM +NS 50ML IV SCH ×2 (03:15→16:01)
[2022-02-05 04:00] VITALS: BP 154/50
[2022-02-05 05:42] LABS: BASOPHILS % (AUTO) 0.8 % (0.0-5.0); EOSINOPHILS % (AUTO) 7.7 % (0.0-8.0); HEMATOCRIT 33.1 % (36-48); MEAN CORPUSCULAR HEMOGLOBIN 27.9 pg (27.0-33.0); MEAN CORPUSCULAR HGB CONC 31.7 g/dL (32.0-36.0); MEAN CORPUSCULAR VOLUME 87.8 fL (79-99); NUCLEATED RED BLOOD CELLS 0.2 % (0.0-0.19); PLATELET COUNT (AUTO) 234 K/uL (130-400); RED BLOOD CELL COUNT(AUTO) 3.77 MIL/uL (4.00-5.50); RED CELL DISTRIBUTION WIDTH 17.3 % (11.0-15.5); WHITE BLOOD COUNT (AUTO) 11.8 K/uL (4.8-10.8)
[2022-02-05 06:00] LABS: CREATININE 5.5 mg/dL (0.5-1.5); PHOSPHORUS 4.2 mg/dL (2.5-4.9); POTASSIUM 3.8 mmol/L (3.5-5.1)
[2022-02-05] MEDS: INSULIN HUMULIN R 100 UNIT/ML 3ML SQ SCH ×4 (06:42→21:48)
[2022-02-05 08:28] VITALS: BP 140/50
[2022-02-05] MEDS: CINACALCET 30 MG TAB PO SCH (08:59)
[2022-02-05] MEDS: BENZONATATE 100 MG CAPSULE PO SCH ×3 (08:59→21:00)
[2022-02-05] MEDS: Vitamin B Complex/Vit C/Folic Acid PO SCH (08:59)
[2022-02-05] MEDS: ASPIRIN 81 MG EC TAB PO SCH (08:59)
[2022-02-05] MEDS: PANTOPRAZOLE 40 MG TAB DR PO SCH (09:00)
[2022-02-05] MEDS: LOSARTAN 100 MG TABLET PO SCH (09:00)
[2022-02-05] MEDS: METOPROLOL SUCCINATE 50 MG TAB.SR.24H PO SCH (09:00)
[2022-02-05] MEDS: SEVELAMER HCL 800 MG TABLET PO SCH ×3 (09:00→21:46)
[2022-02-05] MEDS: HYDRALAZINE 25MG TABLET PO SCH ×3 (09:00→21:46)
[2022-02-05 12:05] VITALS: BP 141/53
[2022-02-05 16:10] VITALS: BP 145/58
[2022-02-05] MEDS: INSULIN GLARGINE 100 UNITS/ML 10 ML VIAL SQ SCH (17:14)
[2022-02-05 20:00] VITALS: BP 158/53
[2022-02-05] MEDS: ATORVASTATIN 40 MG TABLET PO SCH (21:46)
[2022-02-06] VITALS: BP 137/53
[2022-02-06 04:00] VITALS: BP 134/56
[2022-02-06] MEDS: ZOSYN 3.375GM +NS 50ML IV SCH ×2 (04:42→15:09)
[2022-02-06] MEDS: INSULIN HUMULIN R 100 UNIT/ML 3ML SQ SCH ×4 (07:30→21:01)
[2022-02-06 08:42] VITALS: BP 149/54
[2022-02-06] MEDS: BENZONATATE 100 MG CAPSULE PO SCH ×3 (09:41→20:59)
[2022-02-06] MEDS: ASPIRIN 81 MG EC TAB PO SCH (09:41)
[2022-02-06] MEDS: SEVELAMER HCL 800 MG TABLET PO SCH ×3 (09:41→21:00)
[2022-02-06] MEDS: Vitamin B Complex/Vit C/Folic Acid PO SCH (09:42)
[2022-02-06] MEDS: PANTOPRAZOLE 40 MG TAB DR PO SCH (09:42)
[2022-02-06] MEDS: LOSARTAN 100 MG TABLET PO SCH (09:43)
[2022-02-06] MEDS: METOPROLOL SUCCINATE 50 MG TAB.SR.24H PO SCH (09:43)
[2022-02-06] MEDS: HYDRALAZINE 25MG TABLET PO SCH ×3 (09:43→21:00)
[2022-02-06] MEDS: CINACALCET 30 MG TAB PO SCH (09:46)
[2022-02-06 12:09] VITALS: BP 175/57
[2022-02-06 16:09] VITALS: BP 136/53
[2022-02-06] MEDS: INSULIN GLARGINE 100 UNITS/ML 10 ML VIAL SQ SCH (17:30)
[2022-02-06 20:00] VITALS: BP 162/64
[2022-02-06] MEDS: ATORVASTATIN 40 MG TABLET PO SCH (21:00)
[2022-02-07] VITALS (22 sets, daily range): BP systolic 117–168; BP diastolic 51–70
[2022-02-07] MEDS: ZOSYN 3.375GM +NS 50ML IV SCH ×2 (03:51→18:03)
[2022-02-07 04:56] LABS: BASOPHILS % (AUTO) 1.1 % (0.0-5.0); EOSINOPHILS % (AUTO) 9.7 % (0.0-8.0); HEMATOCRIT 31.6 % (36-48); LYMPHOCYTES % (AUTO) 13.7 % (21.0-51.0); MEAN CORPUSCULAR VOLUME 87.5 fL (79-99); MONOCYTES % (AUTO) 9.5 % (3.0-13.0); NEUTROPHILS % (AUTO) 64.9 % (40.0-77.0); NUCLEATED RED BLOOD CELLS 0.3 % (0.0-0.19); PLATELET COUNT (AUTO) 254 K/uL (130-400); RED BLOOD CELL COUNT(AUTO) 3.61 MIL/uL (4.00-5.50); RED CELL DISTRIBUTION WIDTH 17.5 % (11.0-15.5); WHITE BLOOD COUNT (AUTO) 10.1 K/uL (4.8-10.8)
[2022-02-07 05:08] LABS: PHOSPHORUS 5.6 mg/dL (2.5-4.9); POTASSIUM 4.1 mmol/L (3.5-5.1); VANCOMYCIN LEVEL 25.6 mcg/mL (18.0-26.0)
[2022-02-07 05:13] LABS: CREATININE 8.7 mg/dL (0.5-1.5)
[2022-02-07] MEDS: INSULIN HUMULIN R 100 UNIT/ML 3ML SQ SCH ×4 (06:46→20:52)
[2022-02-07] MEDS: ASPIRIN 81 MG EC TAB PO SCH (09:39)
[2022-02-07] MEDS: CINACALCET 30 MG TAB PO SCH (09:39)
[2022-02-07] MEDS: METOPROLOL SUCCINATE 50 MG TAB.SR.24H PO SCH (09:39)
[2022-02-07] MEDS: LOSARTAN 100 MG TABLET PO SCH (09:39)
[2022-02-07] MEDS: BENZONATATE 100 MG CAPSULE PO SCH ×3 (09:39→20:51)
[2022-02-07] MEDS: PANTOPRAZOLE 40 MG TAB DR PO SCH (09:39)
[2022-02-07] MEDS: SEVELAMER HCL 800 MG TABLET PO SCH ×3 (09:39→20:49)
[2022-02-07] MEDS: Vitamin B Complex/Vit C/Folic Acid PO SCH (09:39)
[2022-02-07] MEDS: HYDRALAZINE 25MG TABLET PO SCH ×3 (09:40→20:51)
[2022-02-07] MEDS: VANCOMYCIN 1G/250ML KIT 250 ML IV SCH (18:04)
[2022-02-07] MEDS: INSULIN GLARGINE 100 UNITS/ML 10 ML VIAL SQ SCH (18:10)
[2022-02-07] MEDS: ATORVASTATIN 40 MG TABLET PO SCH (20:51)
[2022-02-08] VITALS (7 sets, daily range): BP systolic 141–167; BP diastolic 50–76
[2022-02-08] MEDS: ZOSYN 3.375GM +NS 50ML IV SCH ×2 (05:02→16:17)
[2022-02-08 05:42] LABS: BASOPHILS % (AUTO) 1.2 % (0.0-5.0); EOSINOPHILS % (AUTO) 8.2 % (0.0-8.0); LYMPHOCYTES % (AUTO) 12.2 % (21.0-51.0); MEAN CORPUSCULAR HEMOGLOBIN 28.1 pg (27.0-33.0); MEAN CORPUSCULAR HGB CONC 31.2 g/dL (32.0-36.0); MEAN CORPUSCULAR VOLUME 90.2 fL (79-99); MONOCYTES % (AUTO) 8.2 % (3.0-13.0); NEUTROPHILS % (AUTO) 69.3 % (40.0-77.0); NUCLEATED RED BLOOD CELLS 0.2 % (0.0-0.19); PLATELET COUNT (AUTO) 297 K/uL (130-400); RED BLOOD CELL COUNT(AUTO) 3.77 MIL/uL (4.00-5.50); RED CELL DISTRIBUTION WIDTH 17.9 % (11.0-15.5)
[2022-02-08 06:02] LABS: ALBUMIN 2.5 g/dL (3.5-5.0); PHOSPHORUS 4.8 mg/dL (2.5-4.9); POTASSIUM 3.5 mmol/L (3.5-5.1); TOTAL PROTEIN, SERUM 6.5 g/dL (6.0-8.3)
[2022-02-08] MEDS: INSULIN HUMULIN R 100 UNIT/ML 3ML SQ SCH ×4 (06:30→20:58)
[2022-02-08] MEDS: LOSARTAN 100 MG TABLET PO SCH (08:49)
[2022-02-08] MEDS: Vitamin B Complex/Vit C/Folic Acid PO SCH (08:49)
[2022-02-08] MEDS: METOPROLOL SUCCINATE 50 MG TAB.SR.24H PO SCH (08:50)
[2022-02-08] MEDS: CINACALCET 30 MG TAB PO SCH (08:50)
[2022-02-08] MEDS: PANTOPRAZOLE 40 MG TAB DR PO SCH (08:50)
[2022-02-08] MEDS: HYDRALAZINE 25MG TABLET PO SCH ×3 (08:50→20:55)
[2022-02-08] MEDS: BENZONATATE 100 MG CAPSULE PO SCH ×3 (08:50→20:52)
[2022-02-08] MEDS: SEVELAMER HCL 800 MG TABLET PO SCH ×3 (08:50→20:54)
[2022-02-08] MEDS: ASPIRIN 81 MG EC TAB PO SCH (08:50)
[2022-02-08] MEDS: INSULIN GLARGINE 100 UNITS/ML 10 ML VIAL SQ SCH (16:21)
[2022-02-08] MEDS: ATORVASTATIN 40 MG TABLET PO SCH (20:52)
[2022-02-09] VITALS (17 sets, daily range): BP systolic 117–175; BP diastolic 49–70
[2022-02-09] MEDS: ZOSYN 3.375GM +NS 50ML IV SCH (04:09)
[2022-02-09 05:51] LABS: MEAN CORPUSCULAR HEMOGLOBIN 27.9 pg (27.0-33.0); MEAN CORPUSCULAR HGB CONC 31.1 g/dL (32.0-36.0); MEAN CORPUSCULAR VOLUME 89.5 fL (79-99); PLATELET COUNT (AUTO) 318 K/uL (130-400); RED BLOOD CELL COUNT(AUTO) 3.91 MIL/uL (4.00-5.50); RED CELL DISTRIBUTION WIDTH 18.5 % (11.0-15.5); WHITE BLOOD COUNT (AUTO) 11.6 K/uL (4.8-10.8)
[2022-02-09 06:06] LABS: ALBUMIN 2.6 g/dL (3.5-5.0); CREATININE 7.6 mg/dL (0.5-1.5); PHOSPHORUS 6.2 mg/dL (2.5-4.9); TOTAL PROTEIN, SERUM 6.9 g/dL (6.0-8.3); VANCOMYCIN LEVEL 27.9 mcg/mL (18.0-26.0)
[2022-02-09] MEDS: INSULIN HUMULIN R 100 UNIT/ML 3ML SQ SCH ×2 (07:07→11:30)
[2022-02-09 07:17] LABS: EOSINOPHILS % (MANUAL) 9 % (1-6); LYMPHOCYTES % (MANUAL) 15 % (22-44); MAN.DIFF COMMENT-IMPRESSION MANUAL DIFFERENTIAL; MONOCYTES % (MANUAL) 7 % (2-9); PLATELET MORPHOLOGY COMMENT ADEQUATE; SEGMENTED NEUTROPHILS % 69 % (40-70)
[2022-02-09] MEDS: BENZONATATE 100 MG CAPSULE PO SCH ×2 (08:59→14:52)
[2022-02-09] MEDS: METOPROLOL SUCCINATE 50 MG TAB.SR.24H PO SCH (08:59)
[2022-02-09] MEDS: Vitamin B Complex/Vit C/Folic Acid PO SCH (09:00)
[2022-02-09] MEDS: CINACALCET 30 MG TAB PO SCH (09:00)
[2022-02-09] MEDS: SEVELAMER HCL 800 MG TABLET PO SCH (09:00)
[2022-02-09] MEDS: ASPIRIN 81 MG EC TAB PO SCH (09:01)
[2022-02-09] MEDS: PANTOPRAZOLE 40 MG TAB DR PO SCH (09:01)
[2022-02-09] MEDS: LOSARTAN 100 MG TABLET PO SCH (09:01)
[2022-02-09] MEDS: HYDRALAZINE 25MG TABLET PO SCH ×2 (09:01→14:53)
[2022-02-09] MEDS ORDERED: LEVO750T68 PO (11:58)
[2022-02-09] MEDS: EPOETIN ALFA-EPBX (NON-ESRD) 10,000 UNIT/ML VIAL SQ SCH (14:53)
== END 2022-02-09 16:08 | disposition home or self-care (01) | DRG 193 ==
LOC: EDH 13:28 → EDHIP 18:41 → 3DH 02-02 00:14
PROVIDERS: ADMIT Internal Medicine Nephrology; ATTEND Internal Medicine Nephrology
PROC: 5A1D70Z Performance of Urinary Filtration, Intermittent, Less than 6 Hours Per Day (ICD-10-PCS; principal; 2022-02-01)
PROC: 5A1D70Z Performance of Urinary Filtration, Intermittent, Less than 6 Hours Per Day (ICD-10-PCS; 2022-02-02)
PROC: 5A1D70Z Performance of Urinary Filtration, Intermittent, Less than 6 Hours Per Day (ICD-10-PCS; 2022-02-04)
PROC: 5A1D70Z Performance of Urinary Filtration, Intermittent, Less than 6 Hours Per Day (ICD-10-PCS; 2022-02-07)
PROC: 5A1D70Z Performance of Urinary Filtration, Intermittent, Less than 6 Hours Per Day (ICD-10-PCS; 2022-02-09)
DX: J18.9 Pneumonia, unspecified organism (principal); N18.6 End stage renal disease; I12.0 Hypertensive chronic kidney disease with stage 5 chronic kidney disease or end stage renal disease; Z20.822 Contact with and (suspected) exposure to COVID-19; E87.70 Fluid overload, unspecified; R09.02 Hypoxemia; D64.9 Anemia, unspecified; E11.22 Type 2 diabetes mellitus with diabetic chronic kidney disease; E11.51 Type 2 diabetes mellitus with diabetic peripheral angiopathy without gangrene; E78.00 Pure hypercholesterolemia, unspecified; I25.10 Atherosclerotic heart disease of native coronary artery without angina pectoris; J45.909 Unspecified asthma, uncomplicated; Z79.4 Long term (current) use of insulin; Z99.2 Dependence on renal dialysis; Z95.1 Presence of aortocoronary bypass graft; Z89.512 Acquired absence of left leg below knee
CPT/HCPCS: 36415; 71045; 71046; 80048; 80053; 80202; 81001; 82550; 82948; 83036; 83735; 83880; 84100; 84484; 85025; 85610; 85730; 86706; 87040; 87340; 87635; 87804; 90935; 93005; 94640; 94664; 94760; C9803; G0378; J0456; J0696; J1815; J2405; J2543; J3370; J7070